=== PATIENT | female | born 1940 | race African-American/Black ===

== ENCOUNTER 2017-03-31 22:55 | Emergency (ER) | payer MEDICARE, MEDICAID ==
[~2017-03-31] VITALS: Ht 160 cm; Wt 58.0 kg
[~2017-03-31 22:55] MED LIST: ALPR0.5T96 PO; AMLO5TAB4 PO; ASPI-986 PO; DILT120T13 PO; HYDR12.529 PO; IRBE75TA10 PO; KETO5DRO80 LEFTEYE; OMEP40CA34 PO; PRED1DRO; PRED5DRO7 LEFTEYE; ROSU5TAB PO
[2017-04-01 01:41] LABS: BASOPHILS % 0.5 % (0.0-2.0); CHLORIDE 101 mEq/L (98-107); EOSINOPHILS % 1.5 % (0.0-5.0); HEMATOCRIT. 36.3 % (36.0-48.0); LYMPHOCYTES % 32.7 % (20.0-50.0); MEAN CORPUSCULAR HEMOGLOBIN 32.7 pg (28.0-32.0); MEAN CORPUSCULAR VOLUME 98.8 fL (81.0-99.0); MEAN PLATELET VOLUME 8.3 fl (7.4-10.4); MONOCYTES % 9.3 % (2.0-8.0); PLATELET 263 x1000/uL (130-400); RED BLOOD CELL COUNT 3.67 mill/uL (4.2-5.4)
[2017-04-01 01:49] LABS: CARBON DIOXIDE 30 mEq/L (21-32)
[2017-04-01 02:18] VITALS: BP 179/90
== END 2017-04-01 03:23 | disposition home or self-care (01) ==
LOC: ER 04-01 01:44
DX: R51 Headache (principal); I10 Essential (primary) hypertension; F41.9 Anxiety disorder, unspecified; K21.9 Gastro-esophageal reflux disease without esophagitis; E78.00 Pure hypercholesterolemia, unspecified; Z79.82 Long term (current) use of aspirin
CPT/HCPCS: 36415; 70450; 71010; 80053; 85025; 99285

== ENCOUNTER 2017-05-19 14:41 | Emergency (ER) | payer MEDICARE, MEDICAID ==
[~2017-05-19] VITALS: Ht 162.6 cm; Wt 81.0 kg
[2017-05-19 15:37] LABS: BASOPHILS % 0.4 % (0.0-2.0); EOSINOPHILS % 1.1 % (0.0-5.0); HEMATOCRIT. 35.1 % (36.0-48.0); HEMOGLOBIN. 11.5 g/dL (12.0-16.0); LYMPHOCYTES % 17.3 % (20.0-50.0); MEAN CORPUSCULAR HEMOGLOBIN 33.1 pg (28.0-32.0); MEAN CORPUSCULAR VOLUME 100.6 fL (81.0-99.0); MEAN PLATELET VOLUME 8.1 fl (7.4-10.4); MONOCYTES % 8.7 % (2.0-8.0); NEUTROPHILS % 72.5 % (40.0-76.0); PLATELET 274 x1000/uL (130-400); RED BLOOD CELL COUNT 3.49 mill/uL (4.2-5.4); RED CELL DISTRIBUTION WIDTH 13.6 % (11.6-14.6)
[2017-05-19 15:43] LABS: PARTIAL THROMBOPLASTIN TIME 24.8 sec (24.0-34.0); PROTHROMBIN TIME 10.9 sec
[2017-05-19 15:44] LABS: CARBON DIOXIDE 28 mEq/L (21-32); CHLORIDE 105 mEq/L (98-107)
[2017-05-19 15:49] LABS: TROPONIN I 0.04 ng/mL (0.00-0.04)
[2017-05-19 17:26] VITALS: BP 134/82
== END 2017-05-19 17:31 | disposition home or self-care (01) ==
LOC: ER 14:46
DX: R00.2 Palpitations (principal); F41.9 Anxiety disorder, unspecified; I10 Essential (primary) hypertension; K21.9 Gastro-esophageal reflux disease without esophagitis; E78.00 Pure hypercholesterolemia, unspecified; Z86.73 Personal history of transient ischemic attack (TIA), and cerebral infarction without residual deficits; Z79.82 Long term (current) use of aspirin
CPT/HCPCS: 36415; 71010; 80048; 83880; 84443; 84484; 85025; 85610; 85730; 93005; 99285

== ENCOUNTER 2017-06-13 16:39 | Emergency (ER) | payer MEDICARE, MEDICAID ==
[~2017-06-13] VITALS: Ht 160 cm; Wt 59.0 kg
[2017-06-13 17:00] VITALS: BP 159/74
== END 2017-06-13 20:48 | disposition left against medical advice (07) ==
LOC: ER 16:39
DX: R51 Headache (principal); Z53.21 Procedure and treatment not carried out due to patient leaving prior to being seen by health care provider

== ENCOUNTER 2017-06-14 09:41 | Emergency (ER) | payer MEDICARE, MEDICAID ==
[~2017-06-14] VITALS: Ht 160 cm; Wt 58.0 kg
[2017-06-14 10:30] VITALS: BP 151/69
[2017-06-14] MEDS ORDERED: ACETAMINOPHEN 325MG TABLET PO ONE (10:45)
== END 2017-06-14 12:35 | disposition home or self-care (01) ==
LOC: ER 12:33
DX: R51 Headache (principal); I48.91 Unspecified atrial fibrillation; F41.9 Anxiety disorder, unspecified; K21.9 Gastro-esophageal reflux disease without esophagitis; E78.00 Pure hypercholesterolemia, unspecified; I10 Essential (primary) hypertension; Z79.82 Long term (current) use of aspirin; Z86.73 Personal history of transient ischemic attack (TIA), and cerebral infarction without residual deficits; Z90.710 Acquired absence of both cervix and uterus
CPT/HCPCS: 99282

== ENCOUNTER → 2018-06-15 | Outpatient (CLI) | payer MEDICARE, MEDICAID ==
[~2018-06-15] MED LIST changes: +ALPR0.5T PO; -ALPR0.5T96 PO
== END | disposition home or self-care (01) ==
LOC: NM 06:49
PROVIDERS: ATTEND Internal Medicine
DX: E04.8 Other specified nontoxic goiter (principal); R22.1 Localized swelling, mass and lump, neck; E78.5 Hyperlipidemia, unspecified; K21.9 Gastro-esophageal reflux disease without esophagitis; I10 Essential (primary) hypertension
CPT/HCPCS: 78014; A9516

== ENCOUNTER 2018-07-31 11:28 | Emergency (ER) | payer MEDICARE, MEDICAID ==
[~2018-07-31] VITALS: Ht 160 cm; Wt 56.5 kg
[~2018-07-31 11:28] MED LIST changes: -AMLO5TAB4 PO; +ASPI-1159 PO; -ASPI-986 PO; +FAMO40TA70 MT; -HYDR12.529 PO; -KETO5DRO80 LEFTEYE; -OMEP40CA34 PO; -PRED1DRO; +PRED1DRO LEFTEYE; -PRED5DRO7 LEFTEYE; +VIT D
[2018-07-31] MEDS ORDERED: HYDROCODONE/ACETAMINOPHEN 5/325MG TABLET PO PRN (13:15)
[2018-07-31 13:28] VITALS: BP 140/65
== END 2018-07-31 16:00 | disposition home or self-care (01) ==
LOC: ER 12:25
DX: S00.83XA Contusion of other part of head, initial encounter (principal); I48.91 Unspecified atrial fibrillation; K21.9 Gastro-esophageal reflux disease without esophagitis; E78.00 Pure hypercholesterolemia, unspecified; E05.90 Thyrotoxicosis, unspecified without thyrotoxic crisis or storm; I10 Essential (primary) hypertension; Z79.82 Long term (current) use of aspirin; Z86.73 Personal history of transient ischemic attack (TIA), and cerebral infarction without residual deficits; Z79.01 Long term (current) use of anticoagulants; W10.8XXA Fall (on) (from) other stairs and steps, initial encounter; Y93.89 Activity, other specified; Y92.018 Other place in single-family (private) house as the place of occurrence of the external cause; M54.5 Low back pain
CPT/HCPCS: 72110; 73080; 99284

== ENCOUNTER 2018-08-25 15:06 | Emergency (ER) | payer MEDICARE, MEDICAID ==
[~2018-08-25] VITALS: Ht 160 cm; Wt 55.0 kg
[2018-08-25 16:02] VITALS: BP 165/76
== END 2018-08-25 17:08 | disposition home or self-care (01) ==
LOC: ER 15:06
DX: R51 Headache (principal); F41.9 Anxiety disorder, unspecified; K21.9 Gastro-esophageal reflux disease without esophagitis; E78.00 Pure hypercholesterolemia, unspecified; I10 Essential (primary) hypertension; F12.10 Cannabis abuse, uncomplicated; Z90.710 Acquired absence of both cervix and uterus; Z86.73 Personal history of transient ischemic attack (TIA), and cerebral infarction without residual deficits; Z79.82 Long term (current) use of aspirin; Z79.899 Other long term (current) drug therapy
CPT/HCPCS: 99281

== ENCOUNTER 2018-09-09 14:09 | Emergency (ER) | payer MEDICARE, MEDICAID ==
[~2018-09-09] VITALS: Ht 160 cm; Wt 55.0 kg
[2018-09-09] MEDS ORDERED: AZIL1TAB2 PO (14:18)
[2018-09-09] MEDS ORDERED: SODIUM CHLORIDE 0.9% 1,000 ML IV ONE (15:08)
[2018-09-09 16:21] LABS: BASOPHILS % 0.4 % (0.0-2.0); EOSINOPHILS % 0.3 % (0.0-5.0); HEMATOCRIT. 30.3 % (36.0-48.0); HEMOGLOBIN. 9.9 g/dL (12.0-16.0); LYMPHOCYTES % 14.7 % (20.0-50.0); MEAN CORPUSCULAR HEMOGLOBIN 33.1 pg (28.0-32.0); MEAN CORPUSCULAR VOLUME 101.2 fL (81.0-99.0); MEAN PLATELET VOLUME 8.6 fl (7.4-10.4); MONOCYTES % 7.9 % (2.0-8.0); NEUTROPHILS % 76.7 % (40.0-76.0); PLATELET 252 x1000/uL (130-400); RED CELL DISTRIBUTION WIDTH 14.2 % (11.6-14.6)
[2018-09-09 16:22] LABS: CHLORIDE 102 mEq/L (98-107)
[2018-09-09 16:26] LABS: CLARITY URINE CLEAR (CLEAR); COLOR URINE YELLOW (YELLOW); KETONES URINE NEGATIVE (NEGATIVE); LEUKOCYTE ESTERASE URINE NEGATIVE (NEGATIVE); NITRITE URINE NEGATIVE (NEGATIVE); OCCULT BLOOD URINE NEGATIVE (NEGATIVE); PROTEIN URINE NEGATIVE (NEGATIVE); SPECIFIC GRAVITY URINE 1.011 (1.005-1.030); UROBILINOGEN URINE 0.2 E.U./dL (0.2-1.0)
[2018-09-09 17:36] VITALS: BP 146/67
== END 2018-09-09 18:19 | disposition home or self-care (01) ==
LOC: ER 14:09
DX: R53.1 Weakness (principal); R42 Dizziness and giddiness; I10 Essential (primary) hypertension; F41.9 Anxiety disorder, unspecified; E78.00 Pure hypercholesterolemia, unspecified; E05.90 Thyrotoxicosis, unspecified without thyrotoxic crisis or storm; K21.9 Gastro-esophageal reflux disease without esophagitis; Z90.710 Acquired absence of both cervix and uterus; Z86.73 Personal history of transient ischemic attack (TIA), and cerebral infarction without residual deficits; Z79.82 Long term (current) use of aspirin
CPT/HCPCS: 36415; 71045; 80053; 81003; 85025; 93005; 96360; 96361; 99285; J7030

== ENCOUNTER 2018-09-21 10:53 | Emergency (ER) | payer MEDICARE, MEDICAID ==
[~2018-09-21] VITALS: Ht 160 cm; Wt 56.0 kg
[~2018-09-21 10:53] MED LIST changes: +AZIL1TAB2 PO
[2018-09-21] MEDS ORDERED: SODIUM CHLORIDE 0.9% 1,000 ML IV ONE (11:32)
[2018-09-21] MEDS ORDERED: KETOROLAC 30MG/ML VIAL IV STA (11:32)
[2018-09-21] MEDS ORDERED: METOCLOPRAMIDE HCL 10MG/2ML VIAL IV ONE (11:45)
[2018-09-21 13:53] VITALS: BP 144/68
== END 2018-09-21 13:55 | disposition home or self-care (01) ==
LOC: ER 10:53
DX: G43.909 Migraine, unspecified, not intractable, without status migrainosus (principal); F41.9 Anxiety disorder, unspecified; I10 Essential (primary) hypertension; K21.9 Gastro-esophageal reflux disease without esophagitis; I48.91 Unspecified atrial fibrillation; E78.00 Pure hypercholesterolemia, unspecified; E05.90 Thyrotoxicosis, unspecified without thyrotoxic crisis or storm; Z86.73 Personal history of transient ischemic attack (TIA), and cerebral infarction without residual deficits; Z79.82 Long term (current) use of aspirin; Z79.01 Long term (current) use of anticoagulants
CPT/HCPCS: 96361; 96374; 96375; 99283; J1885; J2765; J7030

== ENCOUNTER 2019-01-08 09:36 | Inpatient (IN) | payer MEDICARE, MEDICAID ==
[~2019-01-08] VITALS: Ht 312.4 cm; Wt 54.9 kg
[~2019-01-08 09:36] MED LIST changes: -IRBE75TA10 PO
[2019-01-08 11:03] LABS: BASOPHILS % 0.8 % (0.0-2.0); EOSINOPHILS % 0.7 % (0.0-5.0); HEMATOCRIT. 34.2 % (36.0-48.0); LYMPHOCYTES % 17.1 % (20.0-50.0); MEAN CORPUSCULAR VOLUME 99.8 fL (81.0-99.0); MEAN PLATELET VOLUME 8.3 fl (7.4-10.4); MONOCYTES % 9.9 % (2.0-8.0); NEUTROPHILS % 71.5 % (40.0-76.0); PLATELET 284 x1000/uL (130-400); RED BLOOD CELL COUNT 3.43 mill/uL (4.2-5.4); RED CELL DISTRIBUTION WIDTH 15.4 % (11.6-14.6)
[2019-01-08 11:05] LABS: CHLORIDE 105 mEq/L (98-107)
[2019-01-08 11:14] LABS: T4 FREE 0.88 ng/dL (0.76-1.46)
[2019-01-08 11:17] LABS: INR 1.1; PROTHROMBIN TIME 10.6 sec (9.1-11.1)
[2019-01-08] MEDS ORDERED: ASPIRIN 81MG TABLET PO ONE (11:30)
[2019-01-08 11:41] LABS: CLARITY URINE CLEAR (CLEAR); COLOR URINE YELLOW (YELLOW); KETONES URINE NEGATIVE (NEGATIVE); LEUKOCYTE ESTERASE URINE NEGATIVE (NEGATIVE); NITRITE URINE NEGATIVE (NEGATIVE); OCCULT BLOOD URINE NEGATIVE (NEGATIVE); PH URINE 7.5 (4.5-8.0); PROTEIN URINE NEGATIVE (NEGATIVE); SPECIFIC GRAVITY URINE 1.005 (1.005-1.030); UROBILINOGEN URINE 0.2 E.U./dL (0.2-1.0)
[2019-01-09 10:00] VITALS: BP 167/61
[2019-01-09] MEDS ORDERED: TOPI25TA48 MT (10:34)
[2019-01-09] MEDS ORDERED: ROSU10TA25 MT (10:34)
[2019-01-09] MEDS ORDERED: LEVO25TA7 MT (10:34)
[2019-01-09 12:16] VITALS: BP 134/68
[2019-01-09] MEDS ORDERED: ACETAMINOPHEN 325MG TABLET PO PRN (13:30)
[2019-01-09] MEDS ORDERED: ONDANSETRON HCL 4MG/2ML INJ IV PRN (13:30)
[2019-01-09] MEDS ORDERED: NON FORMULARY PATIENT HOME MED XX SCH (14:15)
[2019-01-09 15:47] VITALS: BP 141/69
[2019-01-09] MEDS: LOSARTAN POTASSIUM 100 MG TABLET PO SCH (16:30)
[2019-01-09] MEDS: HYDROCHLOROTHIAZIDE 12.5MG CAPSULE PO SCH (16:30)
[2019-01-09] MEDS ORDERED: ALPRAZOLAM 0.5 MG TABLET PO SCH (17:00)
[2019-01-09] MEDS ORDERED: n (17:31)
[2019-01-09] MEDS ORDERED: ERGO2000 PO (17:31)
[2019-01-09 18:07] LABS: CREATINE KINASE MB FRACTION 2.7 ng/mL (0.5-3.6)
[2019-01-09] MEDS: TOPIRAMATE 25MG TABLET PO SCH (20:35)
[2019-01-09] MEDS: ATORVASTATIN CALCIUM 20MG TABLET PO SCH (20:35)
[2019-01-09 20:38] VITALS: BP 154/68
[2019-01-09] MEDS ORDERED: ROSUVASTATIN CALCIUM MT SCH (21:00)
[2019-01-09] MEDS ORDERED: TOPIRAMATE 25MG TABLET PO SCH (21:00)
[2019-01-10] VITALS: BP 158/68
[2019-01-10 01:15] LABS: CREATINE KINASE 227 IU/L (26-192)
[2019-01-10 04:00] VITALS: BP 127/70
[2019-01-10 07:00] LABS: CHLORIDE 102 mEq/L (98-107)
[2019-01-10] MEDS: LEVOTHYROXINE SODIUM 25MCG TABLET PO SCH (07:15)
[2019-01-10 07:23] LABS: PHOSPHORUS 3.3 mg/dL (2.5-4.9)
[2019-01-10 07:24] LABS: CREATINE KINASE 213 IU/L (26-192); LDL CHOLESTEROL 75 mg/dL (5-100)
[2019-01-10 07:25] LABS: HDL CHOLESTEROL 122 mg/dL (40-59); TOTAL IRON BINDING CAPACITY 423 ug/dL (250-450)
[2019-01-10 07:28] LABS: T4 FREE 0.85 ng/dL (0.76-1.46)
[2019-01-10 07:42] LABS: BASOPHILS % 0.5 % (0.0-2.0); EOSINOPHILS % 1.3 % (0.0-5.0); HEMATOCRIT. 35.3 % (36.0-48.0); HEMOGLOBIN. 11.5 g/dL (12.0-16.0); LYMPHOCYTES % 25.3 % (20.0-50.0); MEAN CORPUSCULAR HEMOGLOBIN 32.1 pg (28.0-32.0); MEAN CORPUSCULAR VOLUME 98.7 fL (81.0-99.0); MEAN PLATELET VOLUME 8.5 fl (7.4-10.4); MONOCYTES % 10.6 % (2.0-8.0); NEUTROPHILS % 62.3 % (40.0-76.0); PLATELET 267 x1000/uL (130-400); RED BLOOD CELL COUNT 3.58 mill/uL (4.2-5.4); RED CELL DISTRIBUTION WIDTH 15.2 % (11.6-14.6)
[2019-01-10 08:00] VITALS: BP 127/70
[2019-01-10] MEDS: LOSARTAN POTASSIUM 100 MG TABLET PO SCH (09:21)
[2019-01-10] MEDS: HYDROCHLOROTHIAZIDE 12.5MG CAPSULE PO SCH (09:22)
[2019-01-10] MEDS: TOPIRAMATE 25MG TABLET PO SCH ×2 (09:23→17:22)
[2019-01-10] MEDS: FAMOTIDINE 20MG TABLET PO SCH (09:23)
[2019-01-10] MEDS: ASPIRIN 81MG EC TABLET PO SCH (09:24)
[2019-01-10 12:00] VITALS: BP 155/68
[2019-01-10] MEDS ORDERED: ALPRAZOLAM 0.5 MG TABLET PO PRN (14:19)
[2019-01-10 15:53] LABS: CREATINE KINASE 221 IU/L (26-192)
[2019-01-10 16:00] VITALS: BP 132/88
[2019-01-10] MEDS ORDERED: ALPRAZOLAM 0.5 MG TABLET PO SCH (17:00)
[2019-01-10 20:00] VITALS: BP 152/68
[2019-01-10] MEDS: ATORVASTATIN CALCIUM 20MG TABLET PO SCH (20:22)
[2019-01-11] VITALS (7 sets, daily range): BP systolic 98–117; BP diastolic 50–76
[2019-01-11] MEDS: LEVOTHYROXINE SODIUM 25MCG TABLET PO SCH (06:20)
[2019-01-11 06:59] LABS: CREATINE KINASE 214 IU/L (26-192)
[2019-01-11] MEDS: HYDROCHLOROTHIAZIDE 12.5MG CAPSULE PO SCH (08:57)
[2019-01-11] MEDS: FAMOTIDINE 20MG TABLET PO SCH (08:58)
[2019-01-11] MEDS: LOSARTAN POTASSIUM 100 MG TABLET PO SCH (08:58)
[2019-01-11] MEDS: TOPIRAMATE 25MG TABLET PO SCH ×2 (08:58→16:22)
[2019-01-11] MEDS: ASPIRIN 81MG EC TABLET PO SCH (08:58)
[2019-01-11 17:18] LABS: CREATINE KINASE 216 IU/L (26-192)
== END 2019-01-11 19:02 | disposition home or self-care (01) | DRG 103 ==
LOC: ER 09:36 → 6WST 11:36 → EDBEDREQ 11:39 → ENRESERV 01-09 07:57
PROVIDERS: ADMIT Internal Medicine; ATTEND Internal Medicine
DX: G43.909 Migraine, unspecified, not intractable, without status migrainosus (principal); I16.0 Hypertensive urgency; I48.91 Unspecified atrial fibrillation; Z86.73 Personal history of transient ischemic attack (TIA), and cerebral infarction without residual deficits; I10 Essential (primary) hypertension; K21.9 Gastro-esophageal reflux disease without esophagitis; F41.9 Anxiety disorder, unspecified; E78.5 Hyperlipidemia, unspecified; E03.9 Hypothyroidism, unspecified; E78.00 Pure hypercholesterolemia, unspecified; R26.81 Unsteadiness on feet; R00.2 Palpitations; Z90.710 Acquired absence of both cervix and uterus; R26.9 Unspecified abnormalities of gait and mobility
CPT/HCPCS: 36415; 70544; 70551; 71045; 80061; 82550; 82553; 82962; 83540; 83550; 83735; 83880; 84100; 84439; 84443; 84450; 84460; 84481; 84484; 84550; 85651; 93005; 93970; 99285

== ENCOUNTER 2019-03-27 17:28 | Emergency (ER) | payer MEDICARE, MEDICAID ==
[~2019-03-27] VITALS: Ht 167.6 cm; Wt 57.0 kg
[~2019-03-27 17:28] MED LIST changes: -ASPI-1159 PO; +ASPI-1393 PO; +ERGO2000 PO; +LEVO25TA7 MT; -PRED1DRO LEFTEYE; +ROSU10TA25 MT; -ROSU5TAB PO; +TOPI25TA48 MT; -VIT D
[2019-03-27] MEDS ORDERED: ACETAMINOPHEN 325MG TABLET PO ONE (20:45)
[2019-03-27 21:32] VITALS: BP 141/45
== END 2019-03-27 21:36 | disposition home or self-care (01) ==
LOC: ER 17:28
DX: R51 Headache (principal); J44.9 Chronic obstructive pulmonary disease, unspecified; E11.9 Type 2 diabetes mellitus without complications; E78.00 Pure hypercholesterolemia, unspecified; I10 Essential (primary) hypertension; K21.9 Gastro-esophageal reflux disease without esophagitis; Z86.73 Personal history of transient ischemic attack (TIA), and cerebral infarction without residual deficits; Z90.710 Acquired absence of both cervix and uterus
CPT/HCPCS: 99282

== ENCOUNTER 2019-05-09 12:32 | Emergency (ER) | payer MEDICARE, MEDICAID ==
[~2019-05-09] VITALS: Ht 160 cm; Wt 58.0 kg
[2019-05-09] MEDS ORDERED: METOCLOPRAMIDE HCL 10MG TABLET PO ONE (14:30)
[2019-05-09] MEDS ORDERED: ACETAMINOPHEN 325MG TABLET PO ONE (14:30)
[2019-05-09 16:13] VITALS: BP 128/63
== END 2019-05-09 16:15 | disposition home or self-care (01) ==
LOC: ER 12:32
DX: G89.29 Other chronic pain (principal); G43.909 Migraine, unspecified, not intractable, without status migrainosus; I48.91 Unspecified atrial fibrillation; F41.9 Anxiety disorder, unspecified; K21.9 Gastro-esophageal reflux disease without esophagitis; E78.00 Pure hypercholesterolemia, unspecified; I10 Essential (primary) hypertension; E05.90 Thyrotoxicosis, unspecified without thyrotoxic crisis or storm; Z86.73 Personal history of transient ischemic attack (TIA), and cerebral infarction without residual deficits; Z90.710 Acquired absence of both cervix and uterus; Z79.01 Long term (current) use of anticoagulants
CPT/HCPCS: 82962; 99283; J8597

== ENCOUNTER 2019-07-04 09:53 | Emergency (ER) | payer MEDICARE, MEDICAID ==
[~2019-07-04] VITALS: Ht 160 cm; Wt 57.0 kg
[2019-07-04] MEDS: TRAMADOL 50MG TABLET PO ONE (10:53)
[2019-07-04 11:52] VITALS: BP 137/65
== END 2019-07-04 11:53 | disposition home or self-care (01) ==
LOC: ER 10:01
DX: G89.29 Other chronic pain (principal); R51 Headache; I10 Essential (primary) hypertension; K21.9 Gastro-esophageal reflux disease without esophagitis; F41.9 Anxiety disorder, unspecified; I48.91 Unspecified atrial fibrillation; G43.909 Migraine, unspecified, not intractable, without status migrainosus; Z79.899 Other long term (current) drug therapy; Z90.710 Acquired absence of both cervix and uterus; Z79.82 Long term (current) use of aspirin; Z86.73 Personal history of transient ischemic attack (TIA), and cerebral infarction without residual deficits
CPT/HCPCS: 99283

== ENCOUNTER 2019-07-10 13:40 | Emergency (ER) | payer MEDICARE, MEDICAID ==
[~2019-07-10] VITALS: Ht 170.2 cm; Wt 70.0 kg
[2019-07-10] MEDS ORDERED: KETOROLAC 60MG/2ML VIAL IM STA (15:50)
[2019-07-10 17:30] VITALS: BP 128/68
== END 2019-07-10 18:01 | disposition home or self-care (01) ==
LOC: ER 13:40
DX: G43.909 Migraine, unspecified, not intractable, without status migrainosus (principal); R51 Headache; F41.9 Anxiety disorder, unspecified; E78.00 Pure hypercholesterolemia, unspecified; I10 Essential (primary) hypertension; E05.90 Thyrotoxicosis, unspecified without thyrotoxic crisis or storm; K21.9 Gastro-esophageal reflux disease without esophagitis; I48.91 Unspecified atrial fibrillation; Z86.73 Personal history of transient ischemic attack (TIA), and cerebral infarction without residual deficits; Z79.899 Other long term (current) drug therapy; Z79.82 Long term (current) use of aspirin
CPT/HCPCS: 70450; 96372; 99284; J1885

== ENCOUNTER 2019-09-15 16:53 | Emergency (ER) | payer MEDICARE, MEDICAID ==
[~2019-09-15] VITALS: Ht 160 cm; Wt 57.0 kg
[2019-09-15 20:02] LABS: BASOPHILS % 0.3 % (0.0-2.0); EOSINOPHILS % 0.7 % (0.0-5.0); HEMATOCRIT. 30.6 % (36.0-48.0); LYMPHOCYTES % 25.1 % (20.0-50.0); MEAN CORPUSCULAR HEMOGLOBIN 33.7 pg (28.0-32.0); MEAN CORPUSCULAR VOLUME 103.1 fL (81.0-99.0); MEAN PLATELET VOLUME 7.6 fl (7.4-10.4); MONOCYTES % 11.7 % (2.0-8.0); NEUTROPHILS % 62.2 % (40.0-76.0); PLATELET 242 x1000/uL (130-400); RED BLOOD CELL COUNT 2.97 mill/uL (4.2-5.4); RED CELL DISTRIBUTION WIDTH 13.5 % (11.6-14.6)
[2019-09-15 20:07] LABS: CHLORIDE 105 mEq/L (98-107)
[2019-09-15 20:44] VITALS: BP 125/70
[2019-09-16] MEDS ORDERED: NEOSTIGMINE METHYLSULFATE 1MG/ML 10 ML VIAL ONE (07:08)
[2019-09-16] MEDS ORDERED: FENTANYL CITRATE/PF 50MCG/ML 2ML VIAL ONE (07:08)
[2019-09-16] MEDS ORDERED: GLYCOPYRROLATE 0.2 MG/ML 2ML VIAL ONE (07:08)
[2019-09-16] MEDS ORDERED: PROPOFOL 200MG/20ML VIAL IV ONE (07:08)
[2019-09-16] MEDS ORDERED: ROCURONIUM BROMIDE 10MG/ML VIAL 5ML IV ONE (07:08)
[2019-09-16] MEDS ORDERED: MIDAZOLAM HCL 2 MG/2 ML VIAL ONE (07:08)
[2019-09-16] MEDS ORDERED: DEXAMETHASONE 4MG/ML 1ML VIAL ONE (07:20)
[2019-09-16] MEDS ORDERED: ONDANSETRON HCL 4MG/2ML INJ ONE (07:20)
[2019-09-16] MEDS ORDERED: HYDROMORPHONE HCL/PF 2MG/ML (OR) ONE (07:46)
[2019-09-16] MEDS ORDERED: LIDOCAINE HCL/PF 1% 10 MG/ML 5ML VIAL ONE (08:01)
[2019-09-16] MEDS ORDERED: EPHEDRINE SULFATE 50MG/ML VIAL ONE (08:01)
[2019-09-16] MEDS ORDERED: SODIUM CHLORIDE 0.9% 10ML VIAL ONE (08:01)
== END 2019-09-15 20:52 | disposition home or self-care (01) ==
LOC: ER 16:59
DX: R00.2 Palpitations (principal); H93.19 Tinnitus, unspecified ear; I48.91 Unspecified atrial fibrillation; F41.9 Anxiety disorder, unspecified; K21.9 Gastro-esophageal reflux disease without esophagitis; E78.00 Pure hypercholesterolemia, unspecified; I10 Essential (primary) hypertension; E05.90 Thyrotoxicosis, unspecified without thyrotoxic crisis or storm; G43.909 Migraine, unspecified, not intractable, without status migrainosus; Z86.73 Personal history of transient ischemic attack (TIA), and cerebral infarction without residual deficits; Z90.710 Acquired absence of both cervix and uterus; Z79.01 Long term (current) use of anticoagulants
CPT/HCPCS: 36415; 80048; 93005; 99284

== ENCOUNTER → 2020-05-20 | Outpatient (CLI) | payer MEDICARE, MEDICAID ==
[~2020-05-20] MED LIST changes: -ASPI-1393 PO; +ASPI-1497 PO
== END | disposition home or self-care (01) ==
LOC: NM 07:27
PROVIDERS: ATTEND Internal Medicine
DX: E21.2 Other hyperparathyroidism (principal)
CPT/HCPCS: 78070; A9500

== ENCOUNTER → 2020-06-19 | Outpatient (CLI) | payer MEDICARE, MEDICAID ==
[~2020-06-19] MED LIST changes: +ALLO300T2 PO; +POTA-9 PO
== END | disposition home or self-care (01) ==
LOC: US 11:29
PROVIDERS: ATTEND Internal Medicine
DX: E04.2 Nontoxic multinodular goiter (principal); E04.9 Nontoxic goiter, unspecified; D35.1 Benign neoplasm of parathyroid gland
CPT/HCPCS: 76536

== ENCOUNTER 2020-07-16 15:25 | Inpatient (IN) | payer MEDICARE, MEDICAID ==
[~2020-07-16] VITALS: Ht 160 cm; Wt 56.2 kg
[~2020-07-16 15:25] MED LIST changes: -ALLO300T2 PO; -POTA-9 PO
[2020-07-16] MEDS ORDERED: ACETAMINOPHEN 325MG TABLET PO STA (16:07)
[2020-07-16 16:17] LABS: BASOPHILS % 0.6 % (0.0-2.0); EOSINOPHILS % 0.4 % (0.0-5.0); HEMATOCRIT. 33.7 % (36.0-48.0); HEMOGLOBIN. 11.2 g/dL (12.0-16.0); LYMPHOCYTES % 18.9 % (20.0-50.0); MEAN CORPUSCULAR HEMOGLOBIN 33.7 pg (28.0-32.0); MEAN CORPUSCULAR VOLUME 101.7 fL (81.0-99.0); MEAN PLATELET VOLUME 7.7 fl (7.4-10.4); MONOCYTES % 9.5 % (2.0-8.0); NEUTROPHILS % 70.6 % (40.0-76.0); PLATELET 333 x1000/uL (130-400); RED BLOOD CELL COUNT 3.32 mill/uL (4.2-5.4); RED CELL DISTRIBUTION WIDTH 13.8 % (11.6-14.6)
[2020-07-16 16:21] LABS: CHLORIDE 103 mEq/L (98-107)
[2020-07-16 17:38] LABS: CLARITY URINE CLEAR (CLEAR); COLOR URINE YELLOW (YELLOW); KETONES URINE TRACE (NEGATIVE); LEUKOCYTE ESTERASE URINE NEGATIVE (NEGATIVE); NITRITE URINE NEGATIVE (NEGATIVE); OCCULT BLOOD URINE NEGATIVE (NEGATIVE); PROTEIN URINE NEGATIVE (NEGATIVE); SPECIFIC GRAVITY URINE 1.023 (1.005-1.030)
[2020-07-16 18:11] LABS: *AMPHETAMINES SCREEN URINE NEGATIVE (NEGATIVE); *BARBITURATES SCREEN URINE NEGATIVE (NEGATIVE); *BENZODIAZEPINES SCREEN URINE PRESUMTIVE POSITIVE (NEGATIVE)
[2020-07-16 18:12] LABS: *COCAINE SCREEN URINE NEGATIVE (NEGATIVE); CANNABINOID URINE SCREEN PRESUMTIVE POSITIVE (NEGATIVE); METHADONE URINE SCREEN NEGATIVE (NEGATIVE); OPIATES URINE SCREEN NEGATIVE (NEGATIVE); PHENCYCLIDINE URINE SCREEN NEGATIVE (NEGATIVE)
[2020-07-16] MEDS ORDERED: POTASSIUM CHLORIDE 20MEQ TABLET SR PO NR (18:15)
[2020-07-16] MEDS ORDERED: ASPIRIN 81MG TABLET PO ONE (18:30)
[2020-07-16] MEDS ORDERED: MAGNESIUM HYDROXIDE 400MG/5ML 30ML UDC PO PRN (18:45)
[2020-07-16] MEDS ORDERED: ACETAMINOPHEN 325MG TABLET PO PRN (18:45)
[2020-07-16] MEDS ORDERED: ZOLPIDEM TARTRATE 5MG TABLET PO PRN (18:45)
[2020-07-16] MEDS ORDERED: ONDANSETRON HCL 4MG/2ML INJ IV PRN (18:45)
[2020-07-16] MEDS ORDERED: ALPRAZOLAM 0.25 MG TABLET PO PRN (18:45)
[2020-07-16] MEDS ORDERED: MAGNESIUM/ALUMINUM HYDROXIDE/SIMETHICONE 30ML UDC PO PRN (18:45)
[2020-07-16] MEDS ORDERED: DIPHENHYDRAMINE 50MG/ML VIAL IV PRN (18:45)
[2020-07-16] MEDS ORDERED: KETOROLAC 15MG/ML VIAL IV PRN (19:30)
[2020-07-16] MEDS ORDERED: MVI, ADULT NO.1 10 ML, FOLIC ACID 1 MG, THIAMINE HCL 100 MG in SODIUM CHLORIDE 0.9% 1,0... IV ONE ×4 (20:00)
[2020-07-16] MEDS: TOPIRAMATE 25MG TABLET PO SCH (21:00)
[2020-07-16 21:30] VITALS: BP 156/53
[2020-07-16] MEDS ORDERED: ALLO300T2 PO (21:32)
[2020-07-16] MEDS ORDERED: POTA-9 PO (21:32)
[2020-07-16] MEDS: DILTIAZEM HCL 90MG TABLET PO SCH (21:48)
[2020-07-16] MEDS: ATORVASTATIN CALCIUM 10MG TABLET PO SCH (21:52)
[2020-07-16] MEDS: SODIUM CHLORIDE 0.9% INJ 3ML FLUSH IVF SCH (21:53)
[2020-07-16] MEDS ORDERED: POTASSIUM CHLORIDE 20MEQ TABLET SR PO ONE (22:00)
[2020-07-17] VITALS (10 sets, daily range): BP systolic 124–176; BP diastolic 47–94
[2020-07-17] MEDS: ACETAMINOPHEN 325MG TABLET PO PRN (01:38)
[2020-07-17] MEDS: SODIUM CHLORIDE 0.9% INJ 3ML FLUSH IVF SCH ×3 (05:15→21:27)
[2020-07-17] MEDS: DILTIAZEM HCL 90MG TABLET PO SCH ×3 (05:27→21:24)
[2020-07-17] MEDS: LEVOTHYROXINE SODIUM 25MCG TABLET PO SCH (06:29)
[2020-07-17 07:06] LABS: BASOPHILS % 0.8 % (0.0-2.0); EOSINOPHILS % 1.7 % (0.0-5.0); HEMATOCRIT. 33.6 % (36.0-48.0); HEMOGLOBIN. 11.1 g/dL (12.0-16.0); LYMPHOCYTES % 31.1 % (20.0-50.0); MEAN CORPUSCULAR HEMOGLOBIN 33.6 pg (28.0-32.0); MEAN CORPUSCULAR VOLUME 102.2 fL (81.0-99.0); MONOCYTES % 12.3 % (2.0-8.0); NEUTROPHILS % 54.1 % (40.0-76.0); PLATELET 321 x1000/uL (130-400); RED BLOOD CELL COUNT 3.29 mill/uL (4.2-5.4); RED CELL DISTRIBUTION WIDTH 13.8 % (11.6-14.6)
[2020-07-17 08:06] LABS: CHLORIDE 109 mEq/L (98-107)
[2020-07-17 08:07] LABS: VITAMIN B12 SERUM 1918 pg/mL (211-911)
[2020-07-17 08:10] LABS: PHOSPHORUS 2.9 mg/dL (2.5-4.9)
[2020-07-17] MEDS: TOPIRAMATE 25MG TABLET PO SCH ×2 (09:00→21:00)
[2020-07-17] MEDS: ASPIRIN 81MG EC TABLET PO SCH (09:04)
[2020-07-17] MEDS: ATORVASTATIN CALCIUM 10MG TABLET PO SCH (21:24)
[2020-07-18] VITALS: BP 144/65
[2020-07-18 00:19] LABS: ETHANOL BLOOD < 10 mg/dL
[2020-07-18 00:20] LABS: LDL CHOLESTEROL 62 mg/dL (5-100)
[2020-07-18 00:22] LABS: HDL CHOLESTEROL 99 mg/dL (40-59)
[2020-07-18 00:23] LABS: T4 FREE 0.86 ng/dL (0.76-1.46)
[2020-07-18 01:08] LABS: FOLIC ACID (FOLATE) SERUM 12.6 ng/mL (>5.38)
[2020-07-18 04:00] VITALS: BP 138/63
[2020-07-18] MEDS: DILTIAZEM HCL 90MG TABLET PO SCH ×3 (06:34→21:04)
[2020-07-18] MEDS: SODIUM CHLORIDE 0.9% INJ 3ML FLUSH IVF SCH ×3 (06:35→21:03)
[2020-07-18] MEDS: LEVOTHYROXINE SODIUM 25MCG TABLET PO SCH (06:35)
[2020-07-18 08:00] VITALS: BP 128/71
[2020-07-18] MEDS: TOPIRAMATE 25MG TABLET PO SCH ×3 (09:00→21:03)
[2020-07-18] MEDS: ASPIRIN 81MG EC TABLET PO SCH (09:17)
[2020-07-18] MEDS: ACETAMINOPHEN 325MG TABLET PO PRN (11:47)
[2020-07-18 12:00] VITALS: BP_SYST 128; BP_SYST 141; BP_DIAS 60; BP_DIAS 71
[2020-07-18] MEDS ORDERED: APIXABAN 5 MG TABLET PO SCH (17:00)
[2020-07-18] MEDS: LOSARTAN POTASSIUM 25 MG TABLET PO SCH (17:10)
[2020-07-18] MEDS: APIXABAN 2.5 MG TABLET PO SCH (17:10)
[2020-07-18 20:00] VITALS: BP_SYST 135; BP_SYST 136; BP_DIAS 50; BP_DIAS 60
[2020-07-18] MEDS: ATORVASTATIN CALCIUM 10MG TABLET PO SCH (21:03)
[2020-07-18 23:30] VITALS: BP 151/65
[2020-07-19] VITALS (7 sets, daily range): BP systolic 110–175; BP diastolic 56–89
[2020-07-19] MEDS: DILTIAZEM HCL 90MG TABLET PO SCH ×2 (06:16→13:49)
[2020-07-19] MEDS: SODIUM CHLORIDE 0.9% INJ 3ML FLUSH IVF SCH ×2 (06:16→13:50)
[2020-07-19] MEDS: LEVOTHYROXINE SODIUM 25MCG TABLET PO SCH (06:24)
[2020-07-19] MEDS: APIXABAN 2.5 MG TABLET PO SCH (08:21)
[2020-07-19] MEDS: LOSARTAN POTASSIUM 25 MG TABLET PO SCH (08:21)
[2020-07-19] MEDS: TOPIRAMATE 25MG TABLET PO SCH (08:21)
[2020-07-19] MEDS: ASPIRIN 81MG EC TABLET PO SCH (08:21)
== END 2020-07-19 19:08 | disposition home or self-care (01) | DRG 65 ==
LOC: ER 15:25 → 6WST 18:18 → EDBEDREQ 18:30 → EDBEDREQTM 18:30 → ENRESERV 19:55
PROVIDERS: ADMIT Internal Medicine; ATTEND Internal Medicine
DX: I63.9 Cerebral infarction, unspecified (principal); I47.1 Supraventricular tachycardia; I48.0 Paroxysmal atrial fibrillation; E03.9 Hypothyroidism, unspecified; E78.00 Pure hypercholesterolemia, unspecified; E87.6 Hypokalemia; K21.9 Gastro-esophageal reflux disease without esophagitis; I10 Essential (primary) hypertension; F41.1 Generalized anxiety disorder; E05.90 Thyrotoxicosis, unspecified without thyrotoxic crisis or storm; F41.9 Anxiety disorder, unspecified; G43.909 Migraine, unspecified, not intractable, without status migrainosus; R26.89 Other abnormalities of gait and mobility; E78.5 Hyperlipidemia, unspecified; R53.81 Other malaise; D64.9 Anemia, unspecified; M10.9 Gout, unspecified; Z86.73 Personal history of transient ischemic attack (TIA), and cerebral infarction without residual deficits; Z79.82 Long term (current) use of aspirin; Z79.899 Other long term (current) drug therapy; Z82.49 Family history of ischemic heart disease and other diseases of the circulatory system
CPT/HCPCS: 36415; 70544; 70551; 71045; 80048; 80053; 80061; 80305; 80320; 81003; 82607; 82746; 83036; 83735; 83880; 84100; 84439; 84443; 84481; 84484; 85025; 93005; 93306; 93880; 97162; 97164; 97166; 99285; J3411; J3490; J7030; G0480

== ENCOUNTER 2020-09-08 14:45 | Emergency (ER) | payer MEDICARE, MEDICAID ==
[~2020-09-08] VITALS: Ht 160 cm; Wt 54.8 kg
[~2020-09-08 14:45] MED LIST changes: +ALLO300T2 PO; +POTA-9 PO
[2020-09-08 18:20] LABS: BASOPHILS % 0.6 % (0.0-2.0); EOSINOPHILS % 0.4 % (0.0-5.0); HEMATOCRIT. 34.6 % (36.0-48.0); HEMOGLOBIN. 11.3 g/dL (12.0-16.0); LYMPHOCYTES % 19.6 % (20.0-50.0); MEAN CORPUSCULAR HEMOGLOBIN 32.5 pg (28.0-32.0); MEAN CORPUSCULAR VOLUME 99.4 fL (81.0-99.0); MEAN PLATELET VOLUME 8.2 fl (7.4-10.4); MONOCYTES % 8.9 % (2.0-8.0); NEUTROPHILS % 70.5 % (40.0-76.0); PLATELET 288 x1000/uL (130-400); RED BLOOD CELL COUNT 3.48 mill/uL (4.2-5.4); RED CELL DISTRIBUTION WIDTH 14.6 % (11.6-14.6)
[2020-09-08 18:27] LABS: CHLORIDE 105 mEq/L (98-107)
[2020-09-08 21:17] VITALS: BP 127/65
== END 2020-09-08 21:18 | disposition home or self-care (01) ==
LOC: ER 14:45
DX: R51.9 Headache, unspecified (principal); R00.2 Palpitations; I48.91 Unspecified atrial fibrillation; I10 Essential (primary) hypertension; Z79.82 Long term (current) use of aspirin; Z79.899 Other long term (current) drug therapy; Z79.01 Long term (current) use of anticoagulants
CPT/HCPCS: 36415; 71045; 80053; 83036; 83880; 84443; 84484; 85025; 93005; 99285

== ENCOUNTER 2020-09-16 14:07 | Emergency (ER) | payer MEDICARE, MEDICAID ==
[~2020-09-16] VITALS: Ht 167.6 cm; Wt 65.0 kg
[2020-09-16 16:11] LABS: CHLORIDE 103 mEq/L (98-107)
[2020-09-16 19:13] LABS: HEMATOCRIT 33.4 % (36.0-48.0); HEMOGLOBIN 10.9 g/dL (12.0-16.0); MEAN CORPUSCULAR HEMOGLOBIN 32.2 pg (28.0-32.0); MEAN CORPUSCULAR VOLUME 98.6 fL (81.0-99.0); PLATELET 305 x1000/uL (130-400); RED BLOOD CELL COUNT 3.39 mill/uL (4.2-5.4); RED CELL DISTRIBUTION WIDTH 14.8 % (11.6-14.6)
[2020-09-16 20:35] VITALS: BP 141/61
== END 2020-09-16 20:40 | disposition home or self-care (01) ==
LOC: ER 14:09
DX: R42 Dizziness and giddiness (principal); H53.8 Other visual disturbances; D64.9 Anemia, unspecified; F41.9 Anxiety disorder, unspecified; R51.9 Headache, unspecified; R00.2 Palpitations; I10 Essential (primary) hypertension; I48.91 Unspecified atrial fibrillation; E78.00 Pure hypercholesterolemia, unspecified; E03.9 Hypothyroidism, unspecified; G43.909 Migraine, unspecified, not intractable, without status migrainosus; K21.9 Gastro-esophageal reflux disease without esophagitis; Z86.73 Personal history of transient ischemic attack (TIA), and cerebral infarction without residual deficits; Z79.899 Other long term (current) drug therapy; Z90.710 Acquired absence of both cervix and uterus
CPT/HCPCS: 36415; 71045; 80048; 85027; 93005; 99285

== ENCOUNTER 2020-10-26 14:09 | Emergency (ER) | payer MEDICARE, MEDICAID ==
[~2020-10-26] VITALS: Ht 160 cm; Wt 55.0 kg
[2020-10-26] MEDS ORDERED: IBUPROFEN 400MG TABLET PO ONE (22:45)
[2020-10-26] MEDS ORDERED: ACETAMINOPHEN 325MG TABLET PO ONE (22:45)
[2020-10-27 01:11] VITALS: BP 173/88
== END 2020-10-27 02:31 | disposition home or self-care (01) ==
LOC: ER 14:09
DX: R51.9 Headache, unspecified (principal); I48.91 Unspecified atrial fibrillation; I11.9 Hypertensive heart disease without heart failure; K21.9 Gastro-esophageal reflux disease without esophagitis; E78.00 Pure hypercholesterolemia, unspecified; E11.9 Type 2 diabetes mellitus without complications; Z86.73 Personal history of transient ischemic attack (TIA), and cerebral infarction without residual deficits; Z98.890 Other specified postprocedural states; Z90.710 Acquired absence of both cervix and uterus; Z79.82 Long term (current) use of aspirin
CPT/HCPCS: 71045; 93005; 99285

== ENCOUNTER 2020-12-07 17:08 | Emergency (ER) | payer MEDICARE, MEDICAID ==
[~2020-12-07] VITALS: Ht 160 cm; Wt 54.0 kg
[2020-12-07] MEDS ORDERED: ACETAMINOPHEN 500MG TABLET PO ONE (18:45)
[2020-12-07] MEDS ORDERED: PROCHLORPERAZINE 10MG/2ML VIAL IV PRN (18:45)
[2020-12-07 20:28] LABS: BASOPHILS % 0.3 % (0.0-2.0); EOSINOPHILS % 0.4 % (0.0-5.0); HEMATOCRIT. 36.3 % (36.0-48.0); HEMOGLOBIN. 11.8 g/dL (12.0-16.0); MEAN CORPUSCULAR HEMOGLOBIN 32.5 pg (28.0-32.0); MEAN CORPUSCULAR VOLUME 99.8 fL (81.0-99.0); MEAN PLATELET VOLUME 8.3 fl (7.4-10.4); MONOCYTES % 10.6 % (2.0-8.0); NEUTROPHILS % 65.7 % (40.0-76.0); PLATELET 343 x1000/uL (130-400); RED BLOOD CELL COUNT 3.64 mill/uL (4.2-5.4); RED CELL DISTRIBUTION WIDTH 14.5 % (11.6-14.6)
[2020-12-07 20:32] LABS: CHLORIDE 105 mEq/L (98-107)
[2020-12-07] MEDS ORDERED: IBUPROFEN 600MG TABLET PO NR (21:00)
[2020-12-07 21:22] VITALS: BP 157/71
== END 2020-12-07 21:27 | disposition home or self-care (01) ==
LOC: ER 17:08
DX: R51.9 Headache, unspecified (principal); I10 Essential (primary) hypertension; Z90.710 Acquired absence of both cervix and uterus; Z98.890 Other specified postprocedural states; Z79.82 Long term (current) use of aspirin; Z79.899 Other long term (current) drug therapy
CPT/HCPCS: 36415; 71045; 80053; 83880; 84484; 85025; 96374; 99284

== ENCOUNTER 2021-03-11 03:56 | Emergency (ER) | payer MEDICARE, MEDICAID ==
[~2021-03-11] VITALS: Ht 160 cm; Wt 54.0 kg
[2021-03-11 06:57] LABS: BASOPHILS % 0.7 % (0.0-2.0); EOSINOPHILS % 0.9 % (0.0-5.0); HEMATOCRIT. 36.5 % (36.0-48.0); HEMOGLOBIN. 11.9 g/dL (12.0-16.0); LYMPHOCYTES % 20.3 % (20.0-50.0); MEAN CORPUSCULAR HEMOGLOBIN 32.9 pg (28.0-32.0); MEAN CORPUSCULAR VOLUME 100.6 fL (81.0-99.0); MEAN PLATELET VOLUME 7.3 fl (7.4-10.4); MONOCYTES % 9.8 % (2.0-8.0); NEUTROPHILS % 68.3 % (40.0-76.0); PLATELET 249 x1000/uL (130-400); RED BLOOD CELL COUNT 3.63 mill/uL (4.2-5.4); RED CELL DISTRIBUTION WIDTH 13.4 % (11.6-14.6)
[2021-03-11 06:59] LABS: CHLORIDE 105 mEq/L (98-107)
[2021-03-11 07:21] VITALS: BP 137/62
== END 2021-03-11 07:47 | disposition home or self-care (01) ==
LOC: ER 03:56
DX: R00.2 Palpitations (principal); I10 Essential (primary) hypertension; Z86.73 Personal history of transient ischemic attack (TIA), and cerebral infarction without residual deficits; Z90.710 Acquired absence of both cervix and uterus
CPT/HCPCS: 36415; 71045; 80053; 85025; 93005; 99283

== ENCOUNTER 2021-09-28 17:52 | Emergency (ER) | payer MEDICARE, MEDICAID ==
[~2021-09-28] VITALS: Ht 160 cm; Wt 55.0 kg
[~2021-09-28 17:52] MED LIST changes: +ASCO500C18 PO; +BUSP5TAB3 MT; +CYCL5TAB PO; +MECL-159 MT
[2021-09-28] MEDS ORDERED: ACETAMINOPHEN 325MG TABLET PO ONE (18:45)
[2021-09-28 18:57] VITALS: BP 154/87
[2021-09-28] MEDS ORDERED: TOPUD PO (19:09)
[2021-09-28] MEDS ORDERED: IBUP-2028 MT (19:09)
== END 2021-09-28 20:21 | disposition home or self-care (01) ==
LOC: ER 18:09
DX: I10 Essential (primary) hypertension (principal); R51.9 Headache, unspecified; K21.9 Gastro-esophageal reflux disease without esophagitis; E78.00 Pure hypercholesterolemia, unspecified; Z86.73 Personal history of transient ischemic attack (TIA), and cerebral infarction without residual deficits; Z90.710 Acquired absence of both cervix and uterus; Z79.82 Long term (current) use of aspirin
CPT/HCPCS: 99282

== ENCOUNTER → 2021-12-07 | Outpatient (CLI) | payer MEDICARE, MEDICAID ==
[~2021-12-07] MED LIST changes: +BUPIVACAINE HCL/PF 0.5% (5MG/ML) 10ML ONE; +CEFAZOLIN SODIUM 1000MG/VIAL ONE; +DILT60TA35 MT; +FENTANYL CITRATE/PF 50MCG/ML 2ML VIAL ONE; +IBUP-2028 MT; +MULT-1146 MT; +PROPOFOL 200MG/20ML VIAL IV ONE; +SKIN ADHESIVE 0.7 GM EA TOP ONE; +TOPUD PO
== END | disposition home or self-care (01) ==
LOC: COVVAC 10:29
PROVIDERS: ATTEND Surgery
DX: Z01.812 Encounter for preprocedural laboratory examination (principal); Z20.822 Contact with and (suspected) exposure to COVID-19
CPT/HCPCS: 87426

== ENCOUNTER 2021-12-08 06:35 | Day surgery (SDC) | payer MEDICARE, MEDICAID ==
[~2021-12-08] VITALS: Ht 157.5 cm; Wt 54.9 kg
[~2021-12-08 06:35] MED LIST changes: -ALPR0.5T PO; -BUPIVACAINE HCL/PF 0.5% (5MG/ML) 10ML ONE; -CEFAZOLIN SODIUM 1000MG/VIAL ONE; -DILT120T13 PO; -FENTANYL CITRATE/PF 50MCG/ML 2ML VIAL ONE; +LACTATED RINGERS 1,000 ML IV SCH; -LEVO25TA7 MT; -MULT-1146 MT; -PROPOFOL 200MG/20ML VIAL IV ONE; -SKIN ADHESIVE 0.7 GM EA TOP ONE
[2021-12-08] MEDS ORDERED: MULT-1146 MT (09:36)
[2021-12-08] MEDS ORDERED: HYDROCODONE/ACETAMINOPHEN 5/325MG TABLET PO ONE (11:00)
[2021-12-08] MEDS ORDERED: ACETAMINOPHEN 325MG TABLET PO PRN (11:30)
[2021-12-08] MEDS ORDERED: FENTANYL CITRATE/PF 50MCG/ML 2ML VIAL IV PRN (11:30)
[2021-12-08] MEDS ORDERED: ONDANSETRON HCL 4MG/2ML INJ IV PRN (11:30)
== END 2021-12-08 12:00 | disposition home or self-care (01) ==
LOC: OR 06:35
PROVIDERS: ATTEND Surgery
DX: R22.42 Localized swelling, mass and lump, left lower limb (principal); D36.7 Benign neoplasm of other specified sites; I10 Essential (primary) hypertension; E03.9 Hypothyroidism, unspecified; M19.90 Unspecified osteoarthritis, unspecified site; F41.9 Anxiety disorder, unspecified; F32.9 Major depressive disorder, single episode, unspecified; I48.91 Unspecified atrial fibrillation; M10.9 Gout, unspecified; D64.9 Anemia, unspecified; Z79.82 Long term (current) use of aspirin; Z79.899 Other long term (current) drug therapy; Z90.710 Acquired absence of both cervix and uterus; Z98.890 Other specified postprocedural states; Z82.49 Family history of ischemic heart disease and other diseases of the circulatory system
CPT/HCPCS: 27047; 27337; 88305; J0690; J2704; J3010; J3490

== ENCOUNTER 2022-04-26 12:53 | Inpatient (IN) | payer MEDICARE, MEDICAID ==
[~2022-04-26] VITALS: Ht 167.6 cm; Wt 58.3 kg
[~2022-04-26 12:53] MED LIST changes: -ALLO300T2 PO; -ASCO500C18 PO; -ERGO2000 PO; +FUROSEMIDE 100MG/10ML VIAL IVP SCH; -LACTATED RINGERS 1,000 ML IV SCH; +MULT-1146 MT; +POTA-202 PO; -POTA-9 PO
[2022-04-26] MEDS ORDERED: CLONIDINE 0.2MG TABLET PO NR (13:30)
[2022-04-26] MEDS ORDERED: CLONIDINE 0.2MG TABLET PO ONE (13:30)
[2022-04-26 13:56] LABS: BASOPHILS % 0.6 % (0.0-2.0); EOSINOPHILS % 1.1 % (0.0-5.0); HEMATOCRIT. 36.2 % (36.0-48.0); HEMOGLOBIN. 12.1 g/dL (12.0-16.0); LYMPHOCYTES % 23.8 % (20.0-50.0); MEAN CORPUSCULAR HEMOGLOBIN 33.6 pg (28.0-32.0); MEAN CORPUSCULAR VOLUME 100.5 fL (81.0-99.0); MEAN PLATELET VOLUME 7.9 fl (7.4-10.4); MONOCYTES % 8.5 % (2.0-8.0); PLATELET 309 x1000/uL (130-400); RED CELL DISTRIBUTION WIDTH 13.6 % (11.6-14.6)
[2022-04-26 14:01] LABS: CHLORIDE 100 mEq/L (98-107)
[2022-04-26] MEDS ORDERED: FUROSEMIDE 40MG/4ML VIAL IV NR (14:45)
[2022-04-26] MEDS ORDERED: POTASSIUM CHLORIDE 20MEQ TABLET SR PO ONE (14:45)
[2022-04-26] MEDS ORDERED: FUROSEMIDE 40MG/4ML VIAL IV ONE (14:45)
[2022-04-26] MEDS ORDERED: NITROGLYCERIN OINT 1GM/INCH UDPKT TD NR (14:45)
[2022-04-26] MEDS ORDERED: NITROGLYCERIN OINT 1GM/INCH UDPKT TD ONE (14:45)
[2022-04-26] MEDS ORDERED: POTASSIUM CHLORIDE 20MEQ TABLET SR PO NR ×2 (14:45→19:56)
[2022-04-26] MEDS ORDERED: ASPIRIN 81MG TABLET PO ONE (14:45)
[2022-04-26] MEDS ORDERED: ASPIRIN 81MG TABLET PO NR (14:45)
[2022-04-26 18:35] VITALS: BP 141/79
[2022-04-26 18:41] VITALS: BP 141/79
[2022-04-26] MEDS ORDERED: AZIL1TAB2 PO (18:55)
[2022-04-26] MEDS ORDERED: IPRATROPIUM/ALBUTEROL 0.5-3(2.5)MG/3ML NEB HHN PRN (19:15)
[2022-04-26] MEDS ORDERED: FAMOTIDINE 40MG TABLET PO SCH (19:15)
[2022-04-26] MEDS ORDERED: MAGNESIUM/ALUMINUM HYDROXIDE/SIMETHICONE 30ML UDC PO PRN (19:15)
[2022-04-26] MEDS ORDERED: ACETAMINOPHEN 325MG TABLET PO PRN (19:15)
[2022-04-26] MEDS ORDERED: CLONIDINE 0.1MG TABLET PO PRN (19:15)
[2022-04-26] MEDS ORDERED: DOCUSATE SODIUM 100MG CAPSULE PO PRN (19:15)
[2022-04-26 20:00] VITALS: BP 130/69
[2022-04-26] MEDS: TOPIRAMATE 25MG TABLET PO SCH (20:55)
[2022-04-26] MEDS: ENOXAPARIN 40MG/0.4ML SYR SUBCUT SCH (21:02)
[2022-04-26] MEDS: ATORVASTATIN CALCIUM 40MG TABLET PO SCH (21:02)
[2022-04-26 22:00] VITALS: BP 100/54
[2022-04-27] VITALS (12 sets, daily range): BP systolic 93–113; BP diastolic 41–64
[2022-04-27 06:26] LABS: BASOPHILS % 0.5 % (0.0-2.0); EOSINOPHILS % 2.9 % (0.0-5.0); HEMATOCRIT. 33.6 % (36.0-48.0); HEMOGLOBIN. 11.4 g/dL (12.0-16.0); LYMPHOCYTES % 26.7 % (20.0-50.0); MEAN CORPUSCULAR HEMOGLOBIN 33.9 pg (28.0-32.0); MEAN CORPUSCULAR VOLUME 99.6 fL (81.0-99.0); MONOCYTES % 11.9 % (2.0-8.0); PLATELET 269 x1000/uL (130-400); RED BLOOD CELL COUNT 3.37 mill/uL (4.2-5.4); RED CELL DISTRIBUTION WIDTH 12.9 % (11.6-14.6)
[2022-04-27 06:38] LABS: CHLORIDE 101 mEq/L (98-107)
[2022-04-27 06:53] LABS: HDL CHOLESTEROL 113 mg/dL (40-59); LDL CHOLESTEROL 66 mg/dL (5-100)
[2022-04-27] MEDS: BUSPIRONE HCL 5MG TABLET PO SCH ×2 (08:12→16:10)
[2022-04-27] MEDS: DILTIAZEM HCL 60MG TABLET PO SCH (08:13)
[2022-04-27] MEDS: TOPIRAMATE 25MG TABLET PO SCH (08:13)
[2022-04-27] MEDS: ASPIRIN 81MG EC TABLET PO SCH (08:13)
[2022-04-27] MEDS: POTASSIUM CHLORIDE 10MEQ TABLET SR PO SCH (08:14)
[2022-04-27] MEDS: FUROSEMIDE 100MG/10ML VIAL IVP SCH (08:14)
[2022-04-27] MEDS: FAMOTIDINE 20MG TABLET PO SCH (08:14)
[2022-04-27 09:18] LABS: BG BASE EXCESS -0.5 mmol/L (-2.0-2.0); BG CARBOXYHEMOGLOBIN 0.3 % (0.5-1.5); BG DEOXYHEMOGLOBIN 2.7 % (0.0-5.0); BG FRACTION INSPIRED OXYGEN 21; BG HCO3 ACT 24.2 mmol/L (22.0-26.0); BG METHEMOGLOBIN 0.1 % (0.0-1.5); BG OXYGEN SATURATION 97.3 % (92.0-98.5); BG OXYHEMOGLOBIN 96.9 % (94.0-97.0); BG PCO2 40.3 mmHg (35.0-45.0); BG PH 7.397 (7.350-7.450); BG PO2 92.9 mmHg (75.0-100.0); BG SAMPLE SITE LEFT BRACHIAL; BG TOTAL HEMOGLOBIN 12.4 g/dL (12.0-18.0); BG VENT MODE ROOM AIR
[2022-04-27] MEDS: ENOXAPARIN 40MG/0.4ML SYR SUBCUT SCH (20:22)
[2022-04-27] MEDS: ATORVASTATIN CALCIUM 40MG TABLET PO SCH (20:22)
[2022-04-28] VITALS (12 sets, daily range): BP systolic 92–121; BP diastolic 51–66
[2022-04-28 05:43] LABS: BASOPHILS % 0.5 % (0.0-2.0); EOSINOPHILS % 1.9 % (0.0-5.0); HEMATOCRIT. 35.8 % (36.0-48.0); HEMOGLOBIN. 11.8 g/dL (12.0-16.0); LYMPHOCYTES % 24.7 % (20.0-50.0); MEAN CORPUSCULAR HEMOGLOBIN 33.4 pg (28.0-32.0); NEUTROPHILS % 62.9 % (40.0-76.0); PLATELET 300 x1000/uL (130-400); RED BLOOD CELL COUNT 3.54 mill/uL (4.2-5.4); RED CELL DISTRIBUTION WIDTH 13.7 % (11.6-14.6)
[2022-04-28] MEDS: ACETAMINOPHEN 325MG TABLET PO PRN (05:59)
[2022-04-28] MEDS: DILTIAZEM HCL 60MG TABLET PO SCH (09:00)
[2022-04-28] MEDS: TOPIRAMATE 25MG TABLET PO SCH ×2 (09:00→09:13)
[2022-04-28] MEDS: FUROSEMIDE 100MG/10ML VIAL IVP SCH (09:04)
[2022-04-28] MEDS: FAMOTIDINE 20MG TABLET PO SCH (09:04)
[2022-04-28] MEDS: BUSPIRONE HCL 5MG TABLET PO SCH ×2 (09:05→18:45)
[2022-04-28] MEDS: POTASSIUM CHLORIDE 10MEQ TABLET SR PO SCH (09:05)
[2022-04-28] MEDS: ASPIRIN 81MG EC TABLET PO SCH (09:12)
[2022-04-28] MEDS: ATORVASTATIN CALCIUM 40MG TABLET PO SCH (20:51)
[2022-04-28] MEDS: ENOXAPARIN 40MG/0.4ML SYR SUBCUT SCH (20:52)
[2022-04-29] VITALS (9 sets, daily range): BP systolic 90–101; BP diastolic 52–60
[2022-04-29] MEDS: FAMOTIDINE 20MG TABLET PO SCH (08:41)
[2022-04-29] MEDS: ASPIRIN 81MG EC TABLET PO SCH (08:41)
[2022-04-29] MEDS: POTASSIUM CHLORIDE 10MEQ TABLET SR PO SCH (08:41)
[2022-04-29] MEDS: BUSPIRONE HCL 5MG TABLET PO SCH (08:43)
[2022-04-29] MEDS: FUROSEMIDE 100MG/10ML VIAL IVP SCH (08:45)
[2022-04-29] MEDS: TOPIRAMATE 25MG TABLET PO SCH (08:46)
[2022-04-29] MEDS: DILTIAZEM HCL 60MG TABLET PO SCH (08:46)
[2022-04-29] MEDS: ACETAMINOPHEN 325MG TABLET PO PRN (10:22)
== END 2022-04-29 18:28 | disposition home or self-care (01) | DRG 305 ==
LOC: ER 12:53 → ENRESERV 17:11 → 5EST 18:39
PROVIDERS: ADMIT Internal Medicine Pulmonary Disease; ATTEND Internal Medicine
DX: I16.0 Hypertensive urgency (principal); D64.9 Anemia, unspecified; E78.00 Pure hypercholesterolemia, unspecified; I11.0 Hypertensive heart disease with heart failure; I48.91 Unspecified atrial fibrillation; I50.9 Heart failure, unspecified; K21.9 Gastro-esophageal reflux disease without esophagitis; F41.9 Anxiety disorder, unspecified; H53.8 Other visual disturbances; M54.2 Cervicalgia; R27.8 Other lack of coordination; E03.9 Hypothyroidism, unspecified; Z90.710 Acquired absence of both cervix and uterus; Z86.73 Personal history of transient ischemic attack (TIA), and cerebral infarction without residual deficits; Z82.49 Family history of ischemic heart disease and other diseases of the circulatory system; R09.89 Other specified symptoms and signs involving the circulatory and respiratory systems
CPT/HCPCS: 36415; 36600; 70551; 71045; 72141; 80048; 80053; 80061; 82375; 82805; 83880; 84443; 84484; 85025; 93005; 93306; 97162; 99291; J1650; J1940

== ENCOUNTER 2022-05-17 10:51 | Inpatient (IN) | payer MEDICARE, MEDICAID ==
[~2022-05-17] VITALS: Ht 160 cm; Wt 57.6 kg
[~2022-05-17 10:51] MED LIST changes: -FUROSEMIDE 100MG/10ML VIAL IVP SCH
[2022-05-17] MEDS ORDERED: SODIUM CHLORIDE 0.9% 1,000 ML IV ONE (13:15)
[2022-05-17 16:29] LABS: BASOPHILS % 0.6 % (0.0-2.0); EOSINOPHILS % 0.4 % (0.0-5.0); HEMATOCRIT. 35.3 % (36.0-48.0); HEMOGLOBIN. 11.6 g/dL (12.0-16.0); LYMPHOCYTES % 24.6 % (20.0-50.0); MEAN CORPUSCULAR HEMOGLOBIN 33.2 pg (28.0-32.0); MEAN CORPUSCULAR VOLUME 101.2 fL (81.0-99.0); MONOCYTES % 9.6 % (2.0-8.0); NEUTROPHILS % 64.8 % (40.0-76.0); PLATELET 345 x1000/uL (130-400); RED BLOOD CELL COUNT 3.49 mill/uL (4.2-5.4); RED CELL DISTRIBUTION WIDTH 13.3 % (11.6-14.6)
[2022-05-17 16:38] LABS: CHLORIDE 100 mEq/L (98-107)
[2022-05-17 16:42] LABS: PARTIAL THROMBOPLASTIN TIME 27.1 sec (23.4-31.0)
[2022-05-17] MEDS ORDERED: ASPIRIN 325MG TABLET PO ONE (17:45)
[2022-05-17] MEDS ORDERED: POTASSIUM CHLORIDE 20MEQ TABLET SR PO ONE (21:00)
[2022-05-17 23:15] VITALS: BP 132/52
[2022-05-17 23:51] VITALS: BP 132/52
[2022-05-18] MEDS ORDERED: ACETAMINOPHEN 325MG TABLET PO PRN (01:00)
[2022-05-18 04:00] VITALS: BP 118/58
[2022-05-18] MEDS: DILTIAZEM HCL 30MG TABLET PO SCH ×3 (05:50→22:00)
[2022-05-18 06:45] LABS: HEMATOCRIT 32.1 % (36.0-48.0); HEMOGLOBIN 10.9 g/dL (12.0-16.0); MEAN CORPUSCULAR HEMOGLOBIN 33.9 pg (28.0-32.0); MEAN CORPUSCULAR VOLUME 99.6 fL (81.0-99.0); PLATELET 311 x1000/uL (130-400); RED BLOOD CELL COUNT 3.22 mill/uL (4.2-5.4); RED CELL DISTRIBUTION WIDTH 13.1 % (11.6-14.6)
[2022-05-18 07:13] LABS: CHLORIDE 104 mEq/L (98-107)
[2022-05-18 07:37] LABS: CREATINE KINASE 198 IU/L (26-192); CREATINE KINASE MB FRACTION 1.6 ng/mL (0.5-3.6); HDL CHOLESTEROL 93 mg/dL (40-59); LDL CHOLESTEROL 67 mg/dL (5-100); T4 FREE 0.85 ng/dL (0.76-1.46)
[2022-05-18 08:00] VITALS: BP 138/53
[2022-05-18] MEDS: ASPIRIN 81MG TABLET PO SCH (09:31)
[2022-05-18] MEDS: POTASSIUM CHLORIDE 20MEQ TABLET SR PO SCH (09:31)
[2022-05-18] MEDS: BUSPIRONE HCL 5MG TABLET PO SCH ×2 (09:32→21:35)
[2022-05-18] MEDS: PANTOPRAZOLE 40MG DR TABLET PO SCH (09:32)
[2022-05-18] MEDS: ENOXAPARIN 30MG/0.3ML SYR SUBCUT SCH (09:32)
[2022-05-18 12:00] VITALS: BP 139/59
[2022-05-18 13:16] LABS: CREATINE KINASE MB FRACTION 1.6 ng/mL (0.5-3.6)
[2022-05-18 16:00] VITALS: BP 133/69
[2022-05-18 20:00] VITALS: BP 121/56
[2022-05-18] MEDS: ATORVASTATIN CALCIUM 40MG TABLET PO SCH (21:35)
[2022-05-19] VITALS: BP_SYST 123; BP_SYST 125; BP_SYST 133; BP_DIAS 55; BP_DIAS 61; BP_DIAS 81
[2022-05-19 04:00] VITALS: BP 136/52
[2022-05-19] MEDS: DILTIAZEM HCL 30MG TABLET PO SCH ×3 (06:18→22:00)
[2022-05-19 08:00] VITALS: BP_SYST 105; BP_SYST 141; BP_DIAS 51; BP_DIAS 57
[2022-05-19] MEDS: ENOXAPARIN 30MG/0.3ML SYR SUBCUT SCH (09:55)
[2022-05-19] MEDS: BUSPIRONE HCL 5MG TABLET PO SCH ×2 (09:56→20:45)
[2022-05-19] MEDS: PANTOPRAZOLE 40MG DR TABLET PO SCH (09:56)
[2022-05-19] MEDS: POTASSIUM CHLORIDE 20MEQ TABLET SR PO SCH (09:56)
[2022-05-19] MEDS: ASPIRIN 81MG TABLET PO SCH (09:56)
[2022-05-19 12:00] VITALS: BP 136/51
[2022-05-19 16:00] VITALS: BP 129/80
[2022-05-19 20:00] VITALS: BP 103/47
[2022-05-19] MEDS: ATORVASTATIN CALCIUM 40MG TABLET PO SCH (20:45)
[2022-05-20] VITALS: BP 140/57
[2022-05-20 04:00] VITALS: BP 122/87
[2022-05-20] MEDS: DILTIAZEM HCL 30MG TABLET PO SCH (05:57)
[2022-05-20 08:00] VITALS: BP 128/2
[2022-05-20 08:08] LABS: BASOPHILS % 0.4 % (0.0-2.0); EOSINOPHILS % 2.9 % (0.0-5.0); HEMATOCRIT. 32.3 % (36.0-48.0); HEMOGLOBIN. 10.9 g/dL (12.0-16.0); MEAN CORPUSCULAR HEMOGLOBIN 33.7 pg (28.0-32.0); MEAN CORPUSCULAR VOLUME 99.9 fL (81.0-99.0); MEAN PLATELET VOLUME 7.8 fl (7.4-10.4); MONOCYTES % 12.5 % (2.0-8.0); NEUTROPHILS % 62.2 % (40.0-76.0); PLATELET 289 x1000/uL (130-400); RED BLOOD CELL COUNT 3.23 mill/uL (4.2-5.4); RED CELL DISTRIBUTION WIDTH 13.2 % (11.6-14.6)
[2022-05-20 08:16] LABS: CHLORIDE 105 mEq/L (98-107)
[2022-05-20] MEDS ORDERED: FAMOTIDINE 20MG TABLET PO SCH (09:00)
[2022-05-20] MEDS: POTASSIUM CHLORIDE 20MEQ TABLET SR PO SCH (09:24)
[2022-05-20] MEDS: ASPIRIN 81MG TABLET PO SCH (09:25)
[2022-05-20] MEDS: ENOXAPARIN 30MG/0.3ML SYR SUBCUT SCH (09:25)
[2022-05-20] MEDS: BUSPIRONE HCL 5MG TABLET PO SCH (09:25)
[2022-05-20 12:00] VITALS: BP 116/47
[2022-05-20 12:56] VITALS: BP 116/47
== END 2022-05-20 15:31 | disposition home or self-care (01) | DRG 641 ==
LOC: ER 10:51 → 6WST 19:16 → ENRESERV 21:04
PROVIDERS: ADMIT Internal Medicine; ATTEND Internal Medicine
PROC: 4A10X4Z Monitoring of Central Nervous Electrical Activity, External Approach (ICD-10-PCS; principal; 2022-05-19)
DX: E87.6 Hypokalemia (principal); R00.2 Palpitations; E78.00 Pure hypercholesterolemia, unspecified; I48.91 Unspecified atrial fibrillation; I11.9 Hypertensive heart disease without heart failure; F41.9 Anxiety disorder, unspecified; K21.9 Gastro-esophageal reflux disease without esophagitis; E78.5 Hyperlipidemia, unspecified; E03.9 Hypothyroidism, unspecified; Z82.49 Family history of ischemic heart disease and other diseases of the circulatory system; Z86.73 Personal history of transient ischemic attack (TIA), and cerebral infarction without residual deficits; Z90.710 Acquired absence of both cervix and uterus; Z79.82 Long term (current) use of aspirin; Z79.899 Other long term (current) drug therapy
CPT/HCPCS: 36415; 71045; 80048; 80053; 80061; 82550; 82553; 83036; 84439; 84443; 84484; 85025; 85027; 86850; 86900; 93005; 95816; 97161; 97162; 99285; J1650; J7030

== ENCOUNTER 2022-07-04 17:04 | Emergency (ER) | payer MEDICARE, MEDICAID ==
[~2022-07-04] VITALS: Ht 160 cm; Wt 56.0 kg
[2022-07-04 17:41] VITALS: BP 200/83
== END 2022-07-05 04:12 | disposition left against medical advice (07) ==
LOC: ER 17:04
DX: Z53.21 Procedure and treatment not carried out due to patient leaving prior to being seen by health care provider (principal)

== ENCOUNTER 2022-07-06 13:14 | Emergency (ER) | payer MEDICARE, MEDICAID ==
[~2022-07-06] VITALS: Ht 160 cm; Wt 55.0 kg
[2022-07-06 13:33] VITALS: BP 162/85
[2022-07-06 17:18] LABS: BASOPHILS % 0.7 % (0.0-2.0); EOSINOPHILS % 0.9 % (0.0-5.0); HEMATOCRIT. 34.4 % (36.0-48.0); HEMOGLOBIN. 11.5 g/dL (12.0-16.0); LYMPHOCYTES % 27.9 % (20.0-50.0); MEAN CORPUSCULAR HEMOGLOBIN 33.2 pg (28.0-32.0); MEAN CORPUSCULAR VOLUME 98.8 fL (81.0-99.0); MEAN PLATELET VOLUME 7.1 fl (7.4-10.4); MONOCYTES % 9.3 % (2.0-8.0); NEUTROPHILS % 61.2 % (40.0-76.0); PLATELET 286 x1000/uL (130-400); RED BLOOD CELL COUNT 3.48 mill/uL (4.2-5.4); RED CELL DISTRIBUTION WIDTH 13.1 % (11.6-14.6)
[2022-07-06 17:23] LABS: CHLORIDE 107 mEq/L (98-107)
[2022-07-06] MEDS ORDERED: ACETAMINOPHEN 500MG TABLET PO NR (19:55)
== END 2022-07-06 20:45 | disposition home or self-care (01) ==
LOC: ER 13:14 → CANBEDREQ 07-07 07:18
DX: R51.9 Headache, unspecified (principal); I10 Essential (primary) hypertension; Z79.899 Other long term (current) drug therapy; Z79.82 Long term (current) use of aspirin
CPT/HCPCS: 36415; 71045; 80053; 83880; 84484; 85025; 93005; 99285

== ENCOUNTER 2022-07-20 15:49 | Emergency (ER) | payer MEDICARE, MEDICAID ==
[~2022-07-20] VITALS: Ht 162.6 cm; Wt 71.0 kg
[2022-07-20 16:26] VITALS: BP 153/75
== END 2022-07-20 18:06 | disposition left against medical advice (07) ==
LOC: ER 15:49
DX: Z53.21 Procedure and treatment not carried out due to patient leaving prior to being seen by health care provider (principal)

== ENCOUNTER 2023-01-06 17:21 | Inpatient (IN) | payer MEDICARE, MEDICAID ==
[~2023-01-06] VITALS: Ht 160 cm; Wt 56.7 kg
[2023-01-06 22:48] LABS: BASOPHILS % 0.7 % (0.0-2.0); EOSINOPHILS % 2.5 % (0.0-5.0); HEMATOCRIT. 32.2 % (36.0-48.0); LYMPHOCYTES % 34.5 % (20.0-50.0); MEAN CORPUSCULAR HEMOGLOBIN 34.4 pg (28.0-32.0); MEAN CORPUSCULAR VOLUME 100.6 fL (81.0-99.0); MEAN PLATELET VOLUME 7.1 fl (7.4-10.4); MONOCYTES % 9.6 % (2.0-8.0); NEUTROPHILS % 52.7 % (40.0-76.0); PLATELET 349 x1000/uL (130-400); RED CELL DISTRIBUTION WIDTH 13.5 % (11.6-14.6)
[2023-01-06 22:55] LABS: CHLORIDE 103 mEq/L (98-107)
[2023-01-06 22:57] LABS: PROTHROMBIN TIME 10.9 sec (9.6-11.0)
[2023-01-07] MEDS ORDERED: ASPIRIN 325MG EC TABLET PO ONE (01:45)
[2023-01-07] MEDS ORDERED: ASPIRIN 325MG EC TABLET PO NR (03:45)
[2023-01-07 05:24] VITALS: BP 153/59
[2023-01-07 08:00] VITALS: BP 124/54
[2023-01-07] MEDS: DILTIAZEM HCL 60MG TABLET PO SCH ×2 (09:00→20:32)
[2023-01-07] MEDS: BUSPIRONE HCL 5MG TABLET PO SCH ×2 (09:33→20:31)
[2023-01-07] MEDS: POTASSIUM CHLORIDE 10MEQ TABLET SR PO SCH (09:33)
[2023-01-07] MEDS: ENOXAPARIN 40MG/0.4ML SYR SUBCUT SCH (09:34)
[2023-01-07 12:48] VITALS: BP 140/45
[2023-01-07 16:31] VITALS: BP 125/59
[2023-01-07 20:00] VITALS: BP 132/63
[2023-01-08] VITALS: BP 122/57
[2023-01-08 04:00] VITALS: BP 141/57
[2023-01-08 08:00] VITALS: BP 148/53
[2023-01-08] MEDS: BUSPIRONE HCL 5MG TABLET PO SCH (08:58)
[2023-01-08] MEDS: DILTIAZEM HCL 60MG TABLET PO SCH (08:58)
[2023-01-08] MEDS: POTASSIUM CHLORIDE 10MEQ TABLET SR PO SCH (08:58)
[2023-01-08] MEDS ORDERED: ASPIRIN 81MG TABLET PO SCH (09:00)
[2023-01-08] MEDS: ENOXAPARIN 40MG/0.4ML SYR SUBCUT SCH (09:06)
[2023-01-08 12:00] VITALS: BP 148/53
[2023-01-08 14:29] LABS: CLARITY URINE CLEAR (CLEAR); COLOR URINE YELLOW (YELLOW); KETONES URINE NEGATIVE (NEGATIVE); LEUKOCYTE ESTERASE URINE NEGATIVE (NEGATIVE); NITRITE URINE NEGATIVE (NEGATIVE); OCCULT BLOOD URINE NEGATIVE (NEGATIVE); PH URINE 5.5 (4.5-8.0); PROTEIN URINE NEGATIVE (NEGATIVE); SPECIFIC GRAVITY URINE 1.014 (1.005-1.030); UROBILINOGEN URINE 0.2 E.U./dL (0.2-1.0)
[2023-01-08 16:00] VITALS: BP 126/60
[2023-01-08 16:20] VITALS: BP 126/60
== END 2023-01-08 19:33 | disposition home or self-care (01) | DRG 880 ==
LOC: ER 18:03 → 7WST 01-07 01:14 → EDBEDREQTM 01-07 01:34 → EDBEDREQ 01-07 01:34
PROVIDERS: ADMIT Internal Medicine; ATTEND Internal Medicine
DX: F41.1 Generalized anxiety disorder (principal); I50.22 Chronic systolic (congestive) heart failure; E11.9 Type 2 diabetes mellitus without complications; E78.5 Hyperlipidemia, unspecified; Z20.822 Contact with and (suspected) exposure to COVID-19; I11.0 Hypertensive heart disease with heart failure; E03.9 Hypothyroidism, unspecified; G43.909 Migraine, unspecified, not intractable, without status migrainosus; I48.91 Unspecified atrial fibrillation; K21.9 Gastro-esophageal reflux disease without esophagitis; Z82.49 Family history of ischemic heart disease and other diseases of the circulatory system; Z86.73 Personal history of transient ischemic attack (TIA), and cerebral infarction without residual deficits; Z79.899 Other long term (current) drug therapy
CPT/HCPCS: 36415; 71045; 80053; 80307; 80329; 81003; 83880; 84484; 85025; 93005; 99291; J1650

== ENCOUNTER 2023-05-08 19:06 | Emergency (ER) | payer MEDICARE, MEDICAID ==
[~2023-05-08] VITALS: Ht 160 cm; Wt 57.6 kg
[~2023-05-08 19:06] MED LIST changes: +FERR-71 MT; -IBUP-2028 MT; -MECL-159 MT; +POTA-354 PO; -TOPUD PO
[2023-05-08 19:43] VITALS: O2SAT 99
[2023-05-08 20:47] LABS: BASOPHILS % 0.7 % (0.0-2.0); EOSINOPHILS % 1.4 % (0.0-5.0); HEMATOCRIT. 32.9 % (36.0-48.0); HEMOGLOBIN. 11.1 g/dL (12.0-16.0); LYMPHOCYTES % 25.5 % (20.0-50.0); MEAN CORPUSCULAR HEMOGLOBIN 34.2 pg (28.0-32.0); MEAN CORPUSCULAR VOLUME 101.5 fL (81.0-99.0); MEAN PLATELET VOLUME 6.9 fl (7.4-10.4); MONOCYTES % 10.5 % (2.0-8.0); NEUTROPHILS % 61.9 % (40.0-76.0); PLATELET 320 x1000/uL (130-400); RED BLOOD CELL COUNT 3.24 mill/uL (4.2-5.4); RED CELL DISTRIBUTION WIDTH 13.2 % (11.6-14.6)
[2023-05-08 21:26] LABS: CHLORIDE 107 mEq/L (98-107)
[2023-05-09] VITALS: BP 147/68; PULSE 72; RESP 15; TEMP 98.4
== END 2023-05-09 00:12 | disposition home or self-care (01) ==
LOC: ER 19:06
DX: R51.9 Headache, unspecified (principal); I48.91 Unspecified atrial fibrillation; F41.9 Anxiety disorder, unspecified; E78.00 Pure hypercholesterolemia, unspecified; I10 Essential (primary) hypertension; Z79.899 Other long term (current) drug therapy
CPT/HCPCS: 36415; 80053; 85025; 93005; 99284

== ENCOUNTER 2023-12-29 19:34 | Emergency (ER) | payer BC, MEDICAID ==
[~2023-12-29] VITALS: Ht 160 cm; Wt 55.5 kg
[~2023-12-29 19:34] MED LIST changes: +DILT120C11 MT; -DILT60TA35 MT
[2023-12-29 20:38] VITALS: O2SAT 99
[2023-12-29 22:55] VITALS: BP 174/79; PULSE 76; RESP 11; TEMP 98.2
[2023-12-29] MEDS ORDERED: AMLO5TAB4 MT (23:24)
[2023-12-29] MEDS: AMLODIPINE 5MG TABLET PO ONE (23:35)
[2023-12-29 23:36] LABS: CLARITY URINE CLEAR (CLEAR); COLOR URINE YELLOW (YELLOW); GLUCOSE URINE NEGATIVE (NEGATIVE); KETONES URINE NEGATIVE (NEGATIVE); LEUKOCYTE ESTERASE URINE NEGATIVE (NEGATIVE); NITRITE URINE NEGATIVE (NEGATIVE); OCCULT BLOOD URINE NEGATIVE (NEGATIVE); PROTEIN URINE NEGATIVE (NEGATIVE); SPECIFIC GRAVITY URINE 1.011 (1.005-1.030); UROBILINOGEN URINE 0.2 E.U./dL (0.2-1.0)
[2024-01-06] MEDS ORDERED: AZIL1TAB2 PO (13:16)
== END 2023-12-29 23:53 | disposition home or self-care (01) ==
LOC: ER 19:34
DX: G89.29 Other chronic pain (principal); R51.9 Headache, unspecified; I10 Essential (primary) hypertension; I48.91 Unspecified atrial fibrillation; F41.9 Anxiety disorder, unspecified; E78.00 Pure hypercholesterolemia, unspecified; Z90.710 Acquired absence of both cervix and uterus; Z79.899 Other long term (current) drug therapy
CPT/HCPCS: 71045; 80053; 81003; 84484; 99284

== ENCOUNTER 2024-02-11 13:53 | Emergency (ER) | payer BC, MEDICAID ==
[~2024-02-11] VITALS: Ht 160 cm; Wt 54.0 kg
[~2024-02-11 13:53] MED LIST changes: +AMLO5TAB4 MT
[2024-02-11 14:07] VITALS: O2SAT 99
[2024-02-11 15:54] LABS: BASOPHILS % 0.5 % (0.0-2.0); DIFFERENTIAL COMMENT 0; EOSINOPHILS % 1.2 % (0.0-5.0); HEMATOCRIT. 33.5 % (36.0-48.0); HEMOGLOBIN. 11.1 g/dL (12.0-16.0); MEAN CORPUSCULAR HEMOGLOBIN 33.4 pg (28.0-32.0); MEAN CORPUSCULAR HGB CONC 33.1 g/dL (31.0-37.0); MEAN PLATELET VOLUME 7.7 fl (7.4-10.4); MONOCYTES % 10.1 % (2.0-8.0); NEUTROPHILS % 58.2 % (40.0-76.0); PLATELET 283 x1000/uL (130-400); RED BLOOD CELL COUNT 3.32 mill/uL (4.2-5.4); RED CELL DISTRIBUTION WIDTH 13.6 % (11.6-14.6); WHITE BLOOD COUNT 5.5 x1000/uL (4.5-11.0)
[2024-02-11 15:56] LABS: CHLORIDE 103 mEq/L (98-107); POTASSIUM 3.6 mEq/L (3.5-5.1); SODIUM 140 mEq/L (136-145)
[2024-02-11 15:57] LABS: CARBON DIOXIDE 32 mEq/L (21-32)
[2024-02-11 15:58] LABS: CALCIUM 10.4 mg/dL (8.7-10.4)
[2024-02-11 16:02] LABS: GLUCOSE 104 mg/dL (70-105)
[2024-02-11 16:03] LABS: INR 0.9; PROTHROMBIN TIME 10.6 sec (9.6-11.0); UREA NITROGEN BLOOD 13 mg/dL (9-23)
[2024-02-11 16:04] LABS: ALANINE AMINOTRANSFERASE 9 IU/L (10-49); ALBUMIN 4.4 g/dL (3.2-4.8); ASPARTATE AMINOTRANSFERASE 31 IU/L (<34)
[2024-02-11 16:05] LABS: BILIRUBIN TOTAL 0.7 mg/dL (0.1-1.0); PROTEIN TOTAL 7.4 g/dL (6.0-8.3)
[2024-02-11 16:13] LABS: CLARITY URINE CLEAR (CLEAR); COLOR URINE DARK YELLOW (YELLOW); GLUCOSE URINE NEGATIVE (NEGATIVE); KETONES URINE TRACE (NEGATIVE); LEUKOCYTE ESTERASE URINE NEGATIVE (NEGATIVE); NITRITE URINE NEGATIVE (NEGATIVE); OCCULT BLOOD URINE NEGATIVE (NEGATIVE); PROTEIN URINE NEGATIVE (NEGATIVE); SPECIFIC GRAVITY URINE 1.031 (1.005-1.030)
[2024-02-11 16:23] LABS: *AMPHETAMINES SCREEN URINE NEGATIVE (NEGATIVE); *BARBITURATES SCREEN URINE NEGATIVE (NEGATIVE); *BENZODIAZEPINES SCREEN URINE NEGATIVE (NEGATIVE); *COCAINE SCREEN URINE NEGATIVE (NEGATIVE); CANNABINOID URINE SCREEN PRESUMPTIVE POSITIVE (NEGATIVE); ECSTASY MDMA SCREEN URINE NEGATIVE (NEGATIVE); METHADONE URINE SCREEN Neg (NEGATIVE); OPIATES URINE SCREEN NEGATIVE (NEGATIVE); PHENCYCLIDINE URINE SCREEN NEGATIVE (NEGATIVE)
[2024-02-11] MEDS ORDERED: MAG-55 MT (16:48)
[2024-02-11] MEDS ORDERED: POLY119P2 MT (16:48)
[2024-02-11 17:31] VITALS: BP 171/68; PULSE 63; RESP 16; TEMP 98.2
== END 2024-02-11 17:38 | disposition home or self-care (01) ==
LOC: ER 13:53
DX: K21.9 Gastro-esophageal reflux disease without esophagitis (principal); I10 Essential (primary) hypertension; E78.00 Pure hypercholesterolemia, unspecified; Z79.899 Other long term (current) drug therapy; Z79.82 Long term (current) use of aspirin; Z90.710 Acquired absence of both cervix and uterus
CPT/HCPCS: 36415; 74176; 80053; 80305; 81003; 85025; 93005; 99284

== ENCOUNTER 2024-02-25 16:09 | Emergency (ER) | payer BC, MEDICAID ==
[~2024-02-25] VITALS: Ht 154.9 cm; Wt 63.0 kg
[~2024-02-25 16:09] MED LIST changes: +MAG-55 MT; +POLY119P2 MT
[2024-02-25 16:17] VITALS: BP 123/74; PULSE 104; TEMP 98.6; O2SAT 100
[2024-02-25] MEDS: DIPHENHYDRAMINE 25MG CAPSULE PO SCH (19:00)
[2024-02-25 19:19] VITALS: RESP 16
[2024-02-25] MEDS: KETOROLAC 15MG/ML VIAL IM ONE (19:19)
[2024-02-25] MEDS: PROCHLORPERAZINE MALEATE 10MG TABLET PO ONE (19:20)
[2024-02-25] MEDS: DIPHENHYDRAMINE 25MG CAPSULE PO ONE (19:20)
[2024-02-25] MEDS ORDERED: IBUP-2029 MT (20:16)
== END 2024-02-25 20:35 | disposition home or self-care (01) ==
LOC: ER 16:09
DX: R51.9 Headache, unspecified (principal); D64.9 Anemia, unspecified; F41.9 Anxiety disorder, unspecified; K21.9 Gastro-esophageal reflux disease without esophagitis; E78.00 Pure hypercholesterolemia, unspecified; I10 Essential (primary) hypertension; Z90.710 Acquired absence of both cervix and uterus
CPT/HCPCS: 99283; 96372; Q0163; Q0164; J1885

== ENCOUNTER 2024-03-10 21:29 | Emergency (ER) | payer BC, MEDICAID ==
[~2024-03-10] VITALS: Ht 160 cm; Wt 54.0 kg
[~2024-03-10 21:29] MED LIST changes: +IBUP-2029 MT
[2024-03-10 21:55] VITALS: BP 150/74; PULSE 79; RESP 17; TEMP 98.8; O2SAT 99
[2024-03-10] MEDS ORDERED: LIDO700A15 TP (23:57)
[2024-03-11] MEDS ORDERED: ASPIRIN 325MG EC TABLET PO ONE
== END 2024-03-11 01:28 | disposition home or self-care (01) ==
LOC: ER 21:29
DX: G43.909 Migraine, unspecified, not intractable, without status migrainosus (principal); I10 Essential (primary) hypertension; F41.9 Anxiety disorder, unspecified; K21.9 Gastro-esophageal reflux disease without esophagitis; E78.00 Pure hypercholesterolemia, unspecified; D64.9 Anemia, unspecified; Z90.710 Acquired absence of both cervix and uterus
CPT/HCPCS: 82962; 99282

== ENCOUNTER 2024-10-24 16:04 | Emergency (ER) | payer BC, MEDICAID ==
[~2024-10-24] VITALS: Ht 160 cm; Wt 52.0 kg
[~2024-10-24 16:04] MED LIST changes: -AMLO5TAB4 MT; -AZIL1TAB2 PO; +CALC-1305 PO; -CYCL5TAB PO; +CYCL5TAB3 PO; +FAMO20TA8 MT; -FAMO40TA70 MT; -FERR-71 MT; +GABA-1180 PO; -IBUP-2029 MT; +LIDO700A15 TP; -MAG-55 MT; +MAGN400T7 PO; +NORT25CA PO; -POLY119P2 MT; -POTA-202 PO; -POTA-354 PO; +RIBO100T9 PO; -TOPI25TA48 MT
[2024-10-24 16:05] VITALS: O2SAT 99
[2024-10-24 16:15] VITALS: BP 116/55; PULSE 87; RESP 18; TEMP 98.4; O2SAT 98
[2024-10-24 16:36] LABS: BASOPHILS % 0.6 % (0.0-2.0); DIFFERENTIAL COMMENT 0; EOSINOPHILS % 1.7 % (0.0-5.0); HEMOGLOBIN. 11.8 g/dL (12.0-16.0); LYMPHOCYTES % 19.5 % (20.0-50.0); MEAN CORPUSCULAR HEMOGLOBIN 33.6 pg (28.0-32.0); MEAN CORPUSCULAR HGB CONC 32.8 g/dL (31.0-37.0); MEAN CORPUSCULAR VOLUME 102.4 fL (81.0-99.0); MEAN PLATELET VOLUME 7.5 fl (7.4-10.4); MONOCYTES % 9.8 % (2.0-8.0); NEUTROPHILS % 68.4 % (40.0-76.0); PLATELET 319 x1000/uL (130-400); RED BLOOD CELL COUNT 3.52 mill/uL (4.2-5.4); RED CELL DISTRIBUTION WIDTH 13.8 % (11.6-14.6); WHITE BLOOD COUNT 6.4 x1000/uL (4.5-11.0)
[2024-10-24 16:42] LABS: CHLORIDE 102 mEq/L (98-107); POTASSIUM 3.4 mEq/L (3.5-5.1); SODIUM 137 mEq/L (136-145)
[2024-10-24 16:44] LABS: CALCIUM 10.3 mg/dL (8.7-10.4); CARBON DIOXIDE 25 mEq/L (21-32)
[2024-10-24 16:49] LABS: GLUCOSE 114 mg/dL (70-105); UREA NITROGEN BLOOD 15 mg/dL (9-23)
[2024-10-24 16:51] LABS: ALANINE AMINOTRANSFERASE 17 IU/L (10-49); ALBUMIN 4.4 g/dL (3.2-4.8); ASPARTATE AMINOTRANSFERASE 43 IU/L (<34); BILIRUBIN DIRECT 0.2 mg/dL (<=3.0); BILIRUBIN TOTAL 0.8 mg/dL (0.1-1.0); PROTEIN TOTAL 7.7 g/dL (6.0-8.3)
[2024-10-24 17:11] LABS: TROPONIN I HIGH SENSITIVITY 43 ng/L (3.0-34)
[2024-10-24] MEDS ORDERED: SIME125T7 MT (19:17)
[2024-10-24] MEDS ORDERED: FAMO-134 MT (19:17)
== END 2024-10-24 20:17 | disposition home or self-care (01) ==
LOC: ER 17:13
DX: K29.70 Gastritis, unspecified, without bleeding (principal); K21.9 Gastro-esophageal reflux disease without esophagitis; I10 Essential (primary) hypertension; Z79.899 Other long term (current) drug therapy; Z90.710 Acquired absence of both cervix and uterus
CPT/HCPCS: 36415; 80048; 80076; 84484; 85025; 93005; 99284

== ENCOUNTER 2024-11-04 20:02 | Emergency (ER) | payer BC, MEDICAID ==
[~2024-11-04] VITALS: Ht 160 cm; Wt 51.0 kg
[~2024-11-04 20:02] MED LIST changes: +FAMO-134 MT; +SIME125T7 MT
[2024-11-04 20:29] VITALS: BP 130/82; PULSE 65; RESP 18; TEMP 98; O2SAT 99
[2024-11-04 22:16] LABS: BASOPHILS % 0.5 % (0.0-2.0); DIFFERENTIAL COMMENT 0; EOSINOPHILS % 1.1 % (0.0-5.0); HEMATOCRIT. 34.4 % (36.0-48.0); HEMOGLOBIN. 11.3 g/dL (12.0-16.0); LYMPHOCYTES % 26.9 % (20.0-50.0); MEAN CORPUSCULAR HEMOGLOBIN 33.6 pg (28.0-32.0); MEAN CORPUSCULAR HGB CONC 32.9 g/dL (31.0-37.0); MEAN CORPUSCULAR VOLUME 102.1 fL (81.0-99.0); MEAN PLATELET VOLUME 8.3 fl (7.4-10.4); MONOCYTES % 9.1 % (2.0-8.0); NEUTROPHILS % 62.4 % (40.0-76.0); PLATELET 261 x1000/uL (130-400); RED BLOOD CELL COUNT 3.37 mill/uL (4.2-5.4); RED CELL DISTRIBUTION WIDTH 13.3 % (11.6-14.6); WHITE BLOOD COUNT 5.1 x1000/uL (4.5-11.0)
[2024-11-04 22:21] LABS: CHLORIDE 104 mEq/L (98-107); POTASSIUM 2.9 mEq/L (3.5-5.1); SODIUM 140 mEq/L (136-145)
[2024-11-04 22:22] LABS: CARBON DIOXIDE 28 mEq/L (21-32)
[2024-11-04 22:23] LABS: CALCIUM 10.7 mg/dL (8.7-10.4)
[2024-11-04 22:27] LABS: GLUCOSE 102 mg/dL (70-105)
[2024-11-04 22:28] LABS: UREA NITROGEN BLOOD 14 mg/dL (9-23)
[2024-11-04 22:29] LABS: ALANINE AMINOTRANSFERASE 13 IU/L (10-49); ALBUMIN 4.6 g/dL (3.2-4.8); ASPARTATE AMINOTRANSFERASE 33 IU/L (<34)
[2024-11-04 22:30] LABS: BILIRUBIN DIRECT 0.2 mg/dL (<=3.0); BILIRUBIN TOTAL 0.7 mg/dL (0.1-1.0); PROTEIN TOTAL 7.8 g/dL (6.0-8.3)
[2024-11-04] MEDS: ACETAMINOPHEN 500MG TABLET PO ONE (23:15)
[2024-11-04] MEDS: POTASSIUM CHLORIDE 20MEQ/PACKET PO ONE (23:15)
[2024-11-04] MEDS ORDERED: OMEP40CA20 MT (23:47)
[2024-11-04] MEDS ORDERED: SUCR1TAB30 MT (23:47)
== END 2024-11-05 00:01 | disposition home or self-care (01) ==
LOC: ER 20:02
DX: K21.9 Gastro-esophageal reflux disease without esophagitis (principal); K29.70 Gastritis, unspecified, without bleeding; I10 Essential (primary) hypertension; Z79.899 Other long term (current) drug therapy; Z90.710 Acquired absence of both cervix and uterus
CPT/HCPCS: 36415; 74176; 80048; 80076; 85025; 93005; 99284

== ENCOUNTER 2025-01-26 13:37 | Emergency (ER) | payer BC, MEDICAID ==
[~2025-01-26] VITALS: Ht 162.6 cm; Wt 52.0 kg
[~2025-01-26 13:37] MED LIST changes: +OMEP40CA20 MT; +SUCR1TAB30 MT
[2025-01-26 13:59] VITALS: BP 148/79; TEMP 36.6; O2SAT 98
[2025-01-26 14:02] VITALS: PULSE 94; RESP 16; O2SAT 99
[2025-01-26] MEDS: KETOROLAC 30MG/ML VIAL IM STA (14:14)
[2025-01-26 14:52] LABS: CLARITY URINE CLEAR (CLEAR); COLOR URINE YELLOW (YELLOW); GLUCOSE URINE NEGATIVE (NEGATIVE); KETONES URINE NEGATIVE (NEGATIVE); LEUKOCYTE ESTERASE URINE NEGATIVE (NEGATIVE); NITRITE URINE NEGATIVE (NEGATIVE); OCCULT BLOOD URINE NEGATIVE (NEGATIVE); PROTEIN URINE NEGATIVE (NEGATIVE); SPECIFIC GRAVITY URINE 1.012 (1.005-1.030); UROBILINOGEN URINE 0.2 E.U./dL (0.2-1.0)
[2025-01-26 14:57] LABS: BASOPHILS % 0.4 % (0.0-2.0); DIFFERENTIAL COMMENT 0; EOSINOPHILS % 0.2 % (0.0-5.0); HEMATOCRIT. 32.3 % (36.0-48.0); HEMOGLOBIN. 10.7 g/dL (12.0-16.0); LYMPHOCYTES % 17.4 % (20.0-50.0); MEAN CORPUSCULAR HEMOGLOBIN 33.4 pg (28.0-32.0); MEAN CORPUSCULAR VOLUME 101.2 fL (81.0-99.0); MEAN PLATELET VOLUME 8.1 fl (7.4-10.4); MONOCYTES % 6.7 % (2.0-8.0); NEUTROPHILS % 75.3 % (40.0-76.0); PLATELET 312 x1000/uL (130-400); RED BLOOD CELL COUNT 3.19 mill/uL (4.2-5.4); WHITE BLOOD COUNT 5.6 x1000/uL (4.5-11.0)
[2025-01-26 15:03] LABS: CHLORIDE 99 mEq/L (98-107); POTASSIUM 3.3 mEq/L (3.5-5.1); SODIUM 140 mEq/L (136-145)
[2025-01-26 15:04] LABS: CARBON DIOXIDE 31 mEq/L (21-32)
[2025-01-26 15:08] LABS: PROTHROMBIN TIME 10.8 sec (9.6-11.0)
[2025-01-26 15:09] LABS: GLUCOSE 107 mg/dL (70-105); UREA NITROGEN BLOOD 15 mg/dL (9-23)
[2025-01-26 15:11] LABS: ALANINE AMINOTRANSFERASE 17 IU/L (10-49); ALBUMIN 4.5 g/dL (3.2-4.8); ASPARTATE AMINOTRANSFERASE 37 IU/L (<34); BILIRUBIN DIRECT 0.2 mg/dL (<=3.0); BILIRUBIN TOTAL 0.9 mg/dL (0.1-1.0); PROTEIN TOTAL 8.3 g/dL (6.0-8.3)
[2025-01-26 15:31] LABS: TROPONIN I HIGH SENSITIVITY 35 ng/L (3.0-34)
[2025-01-26] MEDS: MAGNESIUM/ALUMINUM HYDROXIDE/SIMETHICONE 30ML UDC PO ONE (15:51)
[2025-01-26] MEDS: FAMOTIDINE 20MG TABLET PO ONE (15:51)
== END 2025-01-26 16:12 | disposition home or self-care (01) ==
LOC: ER 13:37
DX: K27.9 Peptic ulcer, site unspecified, unspecified as acute or chronic, without hemorrhage or perforation (principal); I10 Essential (primary) hypertension; I25.2 Old myocardial infarction; K21.9 Gastro-esophageal reflux disease without esophagitis; Z79.899 Other long term (current) drug therapy; Z87.19 Personal history of other diseases of the digestive system; Z90.710 Acquired absence of both cervix and uterus
CPT/HCPCS: 99285; 74176; 80076; 80048; 81003; 83690; 85025; 85610; 84484; 36415; 93005; 96372; J1885

== ENCOUNTER 2025-01-29 19:19 | Emergency (ER) | payer BC, MEDICAID ==
[~2025-01-29] VITALS: Ht 160 cm; Wt 49.0 kg
[2025-01-29 19:23] VITALS: O2SAT 98
[2025-01-29 22:36] LABS: BASOPHILS % 0.4 % (0.0-2.0); EOSINOPHILS % 1.1 % (0.0-5.0); HEMATOCRIT. 33.3 % (36.0-48.0); LYMPHOCYTES % 30.6 % (20.0-50.0); MEAN CORPUSCULAR HEMOGLOBIN 32.8 pg (28.0-32.0); MEAN CORPUSCULAR HGB CONC 33.1 g/dL (31.0-37.0); MEAN CORPUSCULAR VOLUME 99.2 fL (81.0-99.0); MEAN PLATELET VOLUME 7.8 fl (7.4-10.4); MONOCYTES % 9.8 % (2.0-8.0); NEUTROPHILS % 58.1 % (40.0-76.0); PLATELET 294 x1000/uL (130-400); RED BLOOD CELL COUNT 3.36 mill/uL (4.2-5.4); RED CELL DISTRIBUTION WIDTH 13.2 % (11.6-14.6); WHITE BLOOD COUNT 5.8 x1000/uL (4.5-11.0)
[2025-01-29] MEDS: FAMOTIDINE 20MG/2ML VIAL IV ONE (22:39)
[2025-01-29] MEDS: ONDANSETRON HCL 4MG/2ML INJ IV ONE (22:39)
[2025-01-29] MEDS: MAGNESIUM/ALUMINUM HYDROXIDE/SIMETHICONE 30ML UDC PO ONE (22:39)
[2025-01-29 22:50] LABS: CHLORIDE 99 mEq/L (98-107); CLARITY URINE CLEAR (CLEAR); COLOR URINE YELLOW (YELLOW); GLUCOSE URINE NEGATIVE (NEGATIVE); KETONES URINE NEGATIVE (NEGATIVE); LEUKOCYTE ESTERASE URINE TRACE (NEGATIVE); NITRITE URINE NEGATIVE (NEGATIVE); OCCULT BLOOD URINE NEGATIVE (NEGATIVE); PH URINE 5.5 (4.5-8.0); POTASSIUM 3.4 mEq/L (3.5-5.1); PROTEIN URINE NEGATIVE (NEGATIVE); PROTHROMBIN TIME 10.9 sec (9.6-11.0); SODIUM 137 mEq/L (136-145); SPECIFIC GRAVITY URINE 1.009 (1.005-1.030); UROBILINOGEN URINE 0.2 E.U./dL (0.2-1.0)
[2025-01-29 22:51] LABS: CALCIUM 10.8 mg/dL (8.7-10.4); CARBON DIOXIDE 29 mEq/L (21-32)
[2025-01-29 22:56] LABS: CREATININE 0.9 mg/dL (0.6-1.0); GLUCOSE 86 mg/dL (70-105); UREA NITROGEN BLOOD 13 mg/dL (9-23)
[2025-01-29 23:01] LABS: TROPONIN I HIGH SENSITIVITY 43 ng/L (3.0-34)
[2025-01-29 23:17] LABS: BACTERIA URINE TRACE; RBC URINE 0-2 /hpf (0-2); SQUAMOUS EPITHELIAL CELL URINE FEW /lpf (RARE/1+); WBC URINE 0-2 /hpf (0-2)
[2025-01-30] MEDS ORDERED: MAG355OR33 PO (01:38)
[2025-01-30 02:20] VITALS: BP 152/53; PULSE 72; RESP 16; TEMP 36.2; O2SAT 97
== END 2025-01-30 02:23 | disposition home or self-care (01) ==
LOC: ER 19:19
DX: K29.50 Unspecified chronic gastritis without bleeding (principal); R79.89 Other specified abnormal findings of blood chemistry; I10 Essential (primary) hypertension; Z90.710 Acquired absence of both cervix and uterus; Z79.899 Other long term (current) drug therapy
CPT/HCPCS: 99284; 96374; 96375; 80048; 81003; 83690; 85025; 85610; 84484; 36415; J3490; J2405

== ENCOUNTER 2025-03-02 09:23 | Emergency (ER) | payer BC, MEDICAID ==
[~2025-03-02] VITALS: Ht 160 cm; Wt 49.0 kg
[~2025-03-02 09:23] MED LIST changes: -CALC-1305 PO; -CYCL5TAB3 PO; -FAMO-134 MT; -FAMO20TA8 MT; -GABA-1180 PO; -LIDO700A15 TP; -MAGN400T7 PO; -NORT25CA PO; -OMEP40CA20 MT
[2025-03-02 09:28] VITALS: O2SAT 97
[2025-03-02] MEDS: DICYCLOMINE 10 MG/5 ML ORAL SYR PO STA (10:21)
[2025-03-02] MEDS: FAMOTIDINE 20MG TABLET PO ONE (10:21)
[2025-03-02] MEDS: MAGNESIUM/ALUMINUM HYDROXIDE/SIMETHICONE 30ML UDC PO STA (10:21)
[2025-03-02] MEDS: ONDANSETRON 4MG ODT PO STA (10:21)
[2025-03-02 10:29] LABS: BASOPHILS % 0.4 % (0.0-2.0); EOSINOPHILS % 0.7 % (0.0-5.0); HEMOGLOBIN. 10.7 g/dL (12.0-16.0); LYMPHOCYTES % 19.8 % (20.0-50.0); MEAN CORPUSCULAR HEMOGLOBIN 33.2 pg (28.0-32.0); MEAN CORPUSCULAR HGB CONC 33.4 g/dL (31.0-37.0); MEAN CORPUSCULAR VOLUME 99.5 fL (81.0-99.0); MEAN PLATELET VOLUME 7.3 fl (7.4-10.4); MONOCYTES % 8.4 % (2.0-8.0); NEUTROPHILS % 70.7 % (40.0-76.0); PLATELET 325 x1000/uL (130-400); RED BLOOD CELL COUNT 3.22 mill/uL (4.2-5.4); RED CELL DISTRIBUTION WIDTH 13.1 % (11.6-14.6); WHITE BLOOD COUNT 4.7 x1000/uL (4.5-11.0)
[2025-03-02 10:37] LABS: CHLORIDE 102 mEq/L (98-107); POTASSIUM 3.3 mEq/L (3.5-5.1); SODIUM 138 mEq/L (136-145)
[2025-03-02 10:39] LABS: CARBON DIOXIDE 32 mEq/L (21-32)
[2025-03-02 10:44] LABS: CREATININE 1.1 mg/dL (0.6-1.0); GLUCOSE 143 mg/dL (70-105)
[2025-03-02 10:45] LABS: UREA NITROGEN BLOOD 13 mg/dL (9-23)
[2025-03-02 10:46] LABS: ALANINE AMINOTRANSFERASE 15 IU/L (10-49); ALBUMIN 4.7 g/dL (3.2-4.8); ASPARTATE AMINOTRANSFERASE 32 IU/L (<34); BILIRUBIN DIRECT 0.2 mg/dL (<=3.0)
[2025-03-02 10:47] LABS: BILIRUBIN TOTAL 0.9 mg/dL (0.1-1.0)
[2025-03-02] MEDS ORDERED: FAMO-135 MT (11:08)
[2025-03-02] MEDS: ACETAMINOPHEN 325MG TABLET PO ONE (11:40)
[2025-03-02] MEDS: POTASSIUM CHLORIDE 20MEQ TABLET SR PO ONE (11:40)
[2025-03-02 11:45] VITALS: BP 112/72; PULSE 80; RESP 16; TEMP 37.1; O2SAT 97
== END 2025-03-02 11:49 | disposition home or self-care (01) ==
LOC: ER 09:23
DX: K29.50 Unspecified chronic gastritis without bleeding (principal); E87.6 Hypokalemia; I10 Essential (primary) hypertension; E78.00 Pure hypercholesterolemia, unspecified; Z79.899 Other long term (current) drug therapy; Z90.710 Acquired absence of both cervix and uterus
CPT/HCPCS: 99284; 80076; 80048; 83690; 85025; 36415; Q0162; 99283

== ENCOUNTER 2025-04-20 20:33 | Emergency (ER) | payer BC, MEDICAID ==
[~2025-04-20] VITALS: Ht 160 cm; Wt 49.7 kg
[~2025-04-20 20:33] MED LIST changes: +FAMO-135 MT
[2025-04-20 20:51] VITALS: O2SAT 98
[2025-04-20 21:56] VITALS: BP 129/71; PULSE 83; RESP 16; TEMP 36.7; O2SAT 99
[2025-04-21 00:07] LABS: BASOPHILS % 0.8 % (0.0-2.0); EOSINOPHILS % 1.4 % (0.0-5.0); HEMATOCRIT. 33.3 % (36.0-48.0); HEMOGLOBIN. 11.2 g/dL (12.0-16.0); LYMPHOCYTES % 31.7 % (20.0-50.0); MEAN CORPUSCULAR HEMOGLOBIN 33.5 pg (28.0-32.0); MEAN CORPUSCULAR HGB CONC 33.6 g/dL (31.0-37.0); MEAN CORPUSCULAR VOLUME 99.7 fL (81.0-99.0); MEAN PLATELET VOLUME 7.4 fl (7.4-10.4); NEUTROPHILS % 54.1 % (40.0-76.0); PLATELET 309 x1000/uL (130-400); RED BLOOD CELL COUNT 3.34 mill/uL (4.2-5.4); WHITE BLOOD COUNT 4.7 x1000/uL (4.5-11.0)
[2025-04-21 00:15] LABS: POTASSIUM 3.5 mEq/L (3.5-5.1)
[2025-04-21 00:16] LABS: CALCIUM 10.8 mg/dL (8.7-10.4)
[2025-04-21 00:21] LABS: CREATININE 1.1 mg/dL (0.6-1.0)
== END 2025-04-21 01:38 | disposition home or self-care (01) ==
LOC: ER 20:33
DX: I95.9 Hypotension, unspecified (principal); E78.00 Pure hypercholesterolemia, unspecified; I10 Essential (primary) hypertension; Z79.899 Other long term (current) drug therapy; Z90.710 Acquired absence of both cervix and uterus
CPT/HCPCS: 36415; 80048; 85025; 99283; 99284

== ENCOUNTER 2025-04-30 20:33 | Emergency (ER) | payer BC, MEDICAID ==
[~2025-04-30] VITALS: Ht 160 cm; Wt 50.0 kg
[2025-04-30 21:01] VITALS: O2SAT 98
[2025-04-30 21:31] VITALS: BP 144/67; PULSE 77; RESP 18; TEMP 36.7; O2SAT 100
[2025-04-30] MEDS: FAMOTIDINE 20MG TABLET PO ONE (23:12)
[2025-04-30] MEDS: MAGNESIUM/ALUMINUM HYDROXIDE/SIMETHICONE 30ML UDC PO STA (23:12)
[2025-04-30] MEDS: ACETAMINOPHEN 325MG TABLET PO ONE (23:12)
[2025-04-30 23:35] LABS: CLARITY URINE CLEAR (CLEAR); COLOR URINE YELLOW (YELLOW); GLUCOSE URINE NEGATIVE (NEGATIVE); KETONES URINE NEGATIVE (NEGATIVE); LEUKOCYTE ESTERASE URINE NEGATIVE (NEGATIVE); NITRITE URINE NEGATIVE (NEGATIVE); OCCULT BLOOD URINE NEGATIVE (NEGATIVE); PH URINE 5.5 (4.5-8.0); PROTEIN URINE NEGATIVE (NEGATIVE); SPECIFIC GRAVITY URINE 1.007 (1.005-1.030); UROBILINOGEN URINE 0.2 E.U./dL (0.2-1.0)
[2025-04-30 23:40] LABS: BASOPHILS % 0.5 % (0.0-2.0); EOSINOPHILS % 1.2 % (0.0-5.0); HEMATOCRIT. 31.2 % (36.0-48.0); HEMOGLOBIN. 10.4 g/dL (12.0-16.0); LYMPHOCYTES % 32.2 % (20.0-50.0); MEAN PLATELET VOLUME 7.5 fl (7.4-10.4); MONOCYTES % 8.5 % (2.0-8.0); NEUTROPHILS % 57.6 % (40.0-76.0); PLATELET 282 x1000/uL (130-400); RED BLOOD CELL COUNT 3.15 mill/uL (4.2-5.4); RED CELL DISTRIBUTION WIDTH 13.2 % (11.6-14.6)
[2025-04-30 23:52] LABS: CREATININE 1.1 mg/dL (0.6-1.0)
[2025-04-30 23:53] LABS: UREA NITROGEN BLOOD 16 mg/dL (9-23)
[2025-04-30 23:54] LABS: ASPARTATE AMINOTRANSFERASE 38 IU/L (<34)
[2025-04-30 23:55] LABS: BILIRUBIN DIRECT 0.1 mg/dL (<=3.0); BILIRUBIN TOTAL 0.4 mg/dL (0.1-1.0); PROTEIN TOTAL 7.7 g/dL (6.0-8.3)
[2025-05-01] LABS: TROPONIN I HIGH SENSITIVITY 42 ng/L (3.0-34)
[2025-05-01] MEDS: MAGNESIUM/ALUMINUM HYDROXIDE/SIMETHICONE 30ML UDC PO NR (00:57)
[2025-05-01 00:58] VITALS: TEMP 98.1
[2025-05-01] MEDS: ACETAMINOPHEN 325MG TABLET PO NR (00:58)
[2025-05-01] MEDS: FAMOTIDINE 20MG TABLET PO NR (00:58)
[2025-05-01] MEDS ORDERED: MAG-55 MT (01:56)
[2025-05-01] MEDS ORDERED: FAMO-135 MT (01:56)
== END 2025-05-01 02:37 | disposition home or self-care (01) ==
LOC: ER 20:33
DX: R10.9 Unspecified abdominal pain (principal); E78.00 Pure hypercholesterolemia, unspecified; Z79.899 Other long term (current) drug therapy; Z87.11 Personal history of peptic ulcer disease; Z87.19 Personal history of other diseases of the digestive system; Z90.710 Acquired absence of both cervix and uterus
CPT/HCPCS: 36415; 74176; 80048; 80076; 81003; 84484; 85025; 93005; 99284

== ENCOUNTER 2025-06-20 16:37 | Emergency (ER) | payer BC, MEDICAID ==
[~2025-06-20] VITALS: Ht 157.5 cm; Wt 61.0 kg
[~2025-06-20 16:37] MED LIST changes: +MAG-55 MT
[2025-06-20 17:20] VITALS: O2SAT 99
[2025-06-20] MEDS ORDERED: DEXAMETHASONE 1 MG/ML ORAL SYR PO ONE (21:00)
[2025-06-20] MEDS: ACETAMINOPHEN 325MG TABLET PO ONE (21:27)
[2025-06-20] MEDS: SUMATRIPTAN SUCCINATE 25MG TABLET PO ONE (21:28)
[2025-06-20] MEDS: DEXAMETHASONE 4MG TABLET PO NR (21:30)
[2025-06-20] MEDS: FAMOTIDINE 20MG TABLET PO ONE (22:22)
[2025-06-20] MEDS ORDERED: FAMO40TA7 MT (22:25)
[2025-06-20 22:40] VITALS: BP 154/56; PULSE 55; RESP 15; TEMP 36.5; O2SAT 100
== END 2025-06-20 22:41 | disposition home or self-care (01) ==
LOC: ER 16:37
DX: R51.9 Headache, unspecified (principal); K21.9 Gastro-esophageal reflux disease without esophagitis; E78.00 Pure hypercholesterolemia, unspecified; I10 Essential (primary) hypertension; Z98.890 Other specified postprocedural states; Z79.899 Other long term (current) drug therapy; Z90.710 Acquired absence of both cervix and uterus
CPT/HCPCS: 99284; 70450; J8540

== ENCOUNTER 2025-06-25 09:41 | Emergency (ER) | payer BC, MEDICAID ==
[~2025-06-25] VITALS: Ht 162.6 cm; Wt 60.0 kg
[~2025-06-25 09:41] MED LIST changes: +FAMO40TA7 MT
[2025-06-25 09:51] VITALS: O2SAT 100
[2025-06-25 10:18] LABS: BASOPHILS % 0.4 % (0.0-2.0); EOSINOPHILS % 1.0 % (0.0-5.0); HEMATOCRIT. 34.6 % (36.0-48.0); HEMOGLOBIN. 11.5 g/dL (12.0-16.0); LYMPHOCYTES % 22.6 % (20.0-50.0); MEAN PLATELET VOLUME 7.7 fl (7.4-10.4); MONOCYTES % 8.7 % (2.0-8.0); NEUTROPHILS % 67.3 % (40.0-76.0); PLATELET 289 x1000/uL (130-400); RED BLOOD CELL COUNT 3.47 mill/uL (4.2-5.4); RED CELL DISTRIBUTION WIDTH 13.4 % (11.6-14.6)
[2025-06-25] MEDS ORDERED: SIME180C61 PO (10:23)
[2025-06-25 10:30] VITALS: BP 118/52; PULSE 66; RESP 16; TEMP 37; O2SAT 100
[2025-06-25 10:53] LABS: CREATININE 1.1 mg/dL (0.6-1.0); UREA NITROGEN BLOOD 15 mg/dL (9-23)
[2025-06-25 11:04] LABS: TROPONIN I HIGH SENSITIVITY 41 ng/L (3.0-34)
== END 2025-06-25 10:33 | disposition home or self-care (01) ==
LOC: ER 09:41
DX: K29.70 Gastritis, unspecified, without bleeding (principal); E78.00 Pure hypercholesterolemia, unspecified; I10 Essential (primary) hypertension; Z90.710 Acquired absence of both cervix and uterus; Z79.899 Other long term (current) drug therapy; Z98.890 Other specified postprocedural states
CPT/HCPCS: 36415; 80048; 84484; 85025; 93005; 99284